=== PATIENT | female | born 1965 | race Caucasian/White ===

== ENCOUNTER 2016-09-17 | Emergency (ER) | payer MEDICAID | END 2016-09-17 12:51 | disposition home or self-care (01) ==

== ENCOUNTER 2016-09-24 10:16 | Outpatient (CLI) | payer MEDICAID | END 2016-09-24 10:17 | disposition home or self-care (01) | DX: E11.9 Type 2 diabetes mellitus without complications (principal) ==

== ENCOUNTER 2016-12-13 12:43 | Outpatient (CLI) | payer MEDICAID | END 2016-12-13 12:44 | disposition home or self-care (01) | DX: M12.9 Arthropathy, unspecified (principal); M79.1 Myalgia; L40.9 Psoriasis, unspecified; F20.9 Schizophrenia, unspecified ==

== ENCOUNTER 2017-02-22 09:44 | Outpatient (CLI) | payer MEDICAID ==
[2017-02-22 13:44] LABS: HEMOGLOBIN A1C 1.59 g/dL
[2017-02-22 14:09] LABS: CHOL/HDL RATIO 5.2 (<4.4); CHOLESTEROL 178 mg/dL; HDL CHOLESTEROL 34 mg/dL; LDL/HDL RATIO 2.5 (<4.4); TRIGLYCERIDES 295 mg/dL; VLDL CHOLESTEROL 59 mg/dL
== END 2017-02-22 09:45 | disposition home or self-care (01) ==
LOC: LAB.N 09:44
PROVIDERS: ATTEND Nurse Practitioner Gerontology
DX: E11.9 Type 2 diabetes mellitus without complications (principal)
CPT/HCPCS: 36415; 80061; 82306; 83036

== ENCOUNTER 2017-05-20 09:47 | Emergency (ER) | payer MEDICAID ==
[2017-05-20 10:18] LABS: BILIRUBIN,URINE NEGATIVE (NEGATIVE); PH,URINE 5.5 PH (5.0-7.5)
[2017-05-20 10:39] LABS: UA CHARGE (STRIP ONLY) YES; UR CULTURE IF IND NOT INDICATED
[2017-05-20] MEDS ORDERED: KETOROLAC 60 MG/2 ML VIAL IM STA (11:33)
--- NOTE | 2017-05-20 11:38 | ED Physician Documentation ---
PD HPI BACK PAIN - Stated complaint Stated Complaint: BACK/LEG PX - Chief complaint Chief Complaint: Back Pain - History obtained from History obtained from: Patient - History of Present Illness Timing - onset: How many days ago (3) Timing - details: Still present Location: Lower, Left Quality: Pain Associated symptoms: No: Fever, Weakness, Numbness, Incontinent of urine Worsened by: Movement, Twisting Similar symptoms before: Diagnosis (Recurrent lower back pain.) - Additional information Additional information: The patient is a 52-year-old female with history of recurrent lower back pain, presents with left lower back pain of 7 days' duration. She denies any recent traumatic injury. The pain is worse with movement or with walking. The last time was this bad was about one year ago. Review of her medical records reveals she was last seen here with back pain about 13 months ago. She denies fever, numbness or weakness, or urinary incontinence. She reports nausea and headache. She denies vomiting or dysuria. Her medical history is significant for insulin dependent diabetes, and she states her blood sugars have been running in the 200s. Review of Systems Constitutional: denies: Fever Ears: denies: Tinnitus/ringing Nose: denies: Congestion Throat: denies: Sore throat Cardiac: denies: Chest pain / pressure Respiratory: denies: Dyspnea, Cough GI: reports: Nausea. denies: Abdominal Pain, Vomiting : denies: Dysuria, Incontinent Skin: denies: Rash Musculoskeletal: reports: Back pain. denies: Neck pain, Extremity swelling Neurologic: reports: Headache. denies: Focal weakness, Numbness PD PAST MEDICAL HISTORY - Past Medical History Past Medical History: Yes Cardiovascular: Hypertension Respiratory: None Neuro: None Endocrine/Autoimmune: Type 2 diabetes GI: GERD, Chronic diarrhea DENTAL OFFICE ASSISTANT: None : None HEENT: None Psych: Depression, Anxiety, Schizophrenia, ADD/ADHD Musculoskeletal: None, Chronic back pain Derm: None - Past Surgical History Past Surgical History: Yes General: Cholecystectomy /DENTAL OFFICE ASSISTANT: Tubal ligation - Present Medications Home Medications: Ambulatory Orders Medication Instructions Recorded Confirmed Cholecalciferol [Vitamin D3] 5,000 unit DAILY 12/20/15 05/20/17 Insulin Glargine [Lantus Solostar] 25 unit SQ QPM 07/22/16 05/20/17 Ranitidine HCl 300 mg PO DAILY 07/22/16 05/20/17 Promethazine [Phenergan] 25 - 50 mg PO Q6H PRN #10 tab 05/20/17 Tramadol HCl [Ultram] 50 mg PO BID PRN #10 tablet 05/20/17 - Allergies Allergies/Adverse Reactions: Allergies Allergy/AdvReac Type Severity Reaction Status Date / Time No Known Drug Allergies Allergy Verified 09/17/16 12:25 - Social History Does the pt smoke?: No Smoking Status: Never smoker Does the pt drink ETOH?: No Does the pt have substance abuse?: No - Immunizations Immunizations are current?: Yes - POLST Patient has POLST: No PD ED PE NORMAL - Vitals Vital signs reviewed: Yes (hypertensive) - General General: Alert and oriented X 3, Well developed/nourished, Other (overweight) - HEENT HEENT: Atraumatic, EOMI, Pharynx benign - Neck Neck: Supple, no meningeal sign, No bony TTP - Cardiac Cardiac: RRR, No murmur - Respiratory Respiratory: No respiratory distress, Clear bilaterally - Abdomen Abdomen: Soft, Non tender - Back Back: No CVA TTP, No spinal TTP, Other (Tenderness to palpation in the left paralumbar musculature, to the sciatic notch. There is no tenderness to palpation over the spinous processes.) - Derm Derm: No rash - Extremities Extremities: No edema, No calf tenderness / cord, Other (Straight leg raise is negative bilaterally.) - Neuro Neuro: Alert and oriented X 3, No motor deficit, No sensory deficit, Other ( Deep tendon reflexes are 2+ and equal bilaterally at the patellar and Achilles tendons.) Results - Vitals Vitals: Oxygen O2 Source Room air - Labs Labs: Laboratory Tests 05/20/17 10:05 Urine Color YELLOW Urine Clarity CLEAR Urine pH 5.5 Ur Specific [place] 1.025 Urine Protein NEGATIVE Urine Glucose (UA) >=1000 H Urine Ketones NEGATIVE Urine Occult Blood TRACE-LYSE Urine Nitrite NEGATIVE Urine Bilirubin NEGATIVE Urine Urobilinogen 0.2 (NORMAL) Ur Leukocyte Esterase NEGATIVE Ur Microscopic Review NOT INDICATED Urine Culture Comments NOT INDICATED PD MEDICAL DECISION MAKING - ED course Complexity details: reviewed old records, reviewed results, re-evaluated patient , considered differential, d/w patient ED course: The patient's presentation is most consistent with acute exacerbation of recurrent low back pain. There is no evidence of neurologic deficit. I doubt epidural abscess, spinal stenosis, or cauda equina syndrome. Treatment in the emergency room included administration of ketorolac 60 mg IM. She is being discharged with prescriptions for Flexeril and for Ultram, 10 tablets. I discussed with her symptomatic treatment, outpatient follow-up, as well as potentially worrisome signs or symptoms that should prompt reevaluation in the emergency department. Departure - Departure Disposition: 01 Home, Self Care Clinical Impression: Back pain Qualifiers: Back pain location: low back pain Chronicity: acute Back pain laterality: left Sciatica presence: without sciatica Qualified Code(s): M54.5 - Low back pain Condition: Stable Instructions: ED Spasm Back No Trauma Follow-Up: Brook Boothe ARNP [Primary Care Provider] - Prescriptions: Promethazine [Phenergan] 25 - 50 mg PO Q6H PRN #10 tab PRN Reason: Nausea / Vomiting Tramadol HCl [Ultram] 50 mg PO BID PRN #10 tablet PRN Reason: Pain Comments: Apply ice pack to your lower back intermittently for the next 3 days. You can use Phenergan as prescribed as needed for nausea. He can use Ultram as prescribed as needed for pain. Follow up with your primary physician within 1-2 weeks. Call to schedule an appointment. Return to the emergency department if you develop increasing back pain or otherwise worsening symptoms. Discharge Date/Time: 05/20/17 11:59
[2017-05-20] MEDS ORDERED: KETOROLAC 60 MG/2 ML VIAL ONE (11:42)
[2017-05-20 12:00] VITALS: BP 142/94
== END 2017-05-20 11:59 | disposition home or self-care (01) ==
LOC: ED 09:47
DX: M54.5 Low back pain (principal); I10 Essential (primary) hypertension; E11.8 Type 2 diabetes mellitus with unspecified complications; Z79.4 Long term (current) use of insulin
CPT/HCPCS: 81001; 81003; 87086; 96372; 99283

== ENCOUNTER 2017-06-16 13:33 | Outpatient (CLI) | payer MEDICAID | END 2017-06-16 13:34 | disposition home or self-care (01) | LOC: RT 13:33 | PROVIDERS: ATTEND Nurse Practitioner Psychiatric/Mental Health | DX: F20.9 Schizophrenia, unspecified (principal) | CPT/HCPCS: 93005 ==

== ENCOUNTER 2017-08-08 14:15 | Outpatient (CLI) | payer MEDICAID ==
[2017-08-08 19:33] LABS: BASOPHILS % (AUTO) 0.5 %; EOSINOPHILS # (AUTO) 0.2 10^3/uL (0.0-0.7); EOSINOPHILS % (AUTO) 2.4 %; HCT - HEMATOCRIT 43.2 % (37.0-47.0); HGB - HEMOGLOBIN 14.5 g/dL (12.0-16.0); LYMPHOCYTES # (AUTO) 2.2 10^3/uL (1.5-3.5); LYMPHOCYTES % (AUTO) 26.3 %; MEAN CORPUSCULAR HEMOGLOBIN 30.2 pg (27.0-31.0); MEAN CORPUSCULAR HGB CONC 33.6 g/dL (32.0-36.0); MEAN PLATELET VOLUME 9.4 fL (7.9-10.8); MONOCYTES # (AUTO) 0.7 10^3/uL (0.0-1.0); MONOCYTES % (AUTO) 8.1 %; NEUTROPHILS # (AUTO) 5.2 10^3/uL (1.5-6.6); NEUTROPHILS % (AUTO) 62.7 %; NUCLEATED RED BLOOD CELLS AUTO 0.1 /100WBC; RED BLOOD COUNT 4.81 10^6/uL (4.20-5.40); RED CELL DISTRIBUTION WIDTH 12.7 % (12.0-15.0); UNCORRECTED WHITE BLOOD COUNT 8.4 x10^3/uL; WHITE BLOOD COUNT 8.4 x10^3/uL (4.8-10.8)
[2017-08-08 19:42] LABS: HEMOGLOBIN A1C 1.51 g/dL
== END 2017-08-08 14:16 ==
LOC: LAB.N 14:15
PROVIDERS: ATTEND Nurse Practitioner Gerontology
DX: E11.9 Type 2 diabetes mellitus without complications (principal)
CPT/HCPCS: 36415; 82043; 83036; 85025

== ENCOUNTER 2017-10-10 08:00 | Outpatient (CLI) | payer MEDICAID ==
[2017-10-10 19:35] LABS: BASOPHILS # (AUTO) 0.1 10^3/uL (0.0-0.1); EOSINOPHILS # (AUTO) 0.1 10^3/uL (0.0-0.7); EOSINOPHILS % (AUTO) 1.8 %; HGB - HEMOGLOBIN 14.6 g/dL (12.0-16.0); LYMPHOCYTES # (AUTO) 2.1 10^3/uL (1.5-3.5); LYMPHOCYTES % (AUTO) 27.2 %; MEAN CORPUSCULAR HEMOGLOBIN 29.9 pg (27.0-31.0); MEAN CORPUSCULAR HGB CONC 32.5 g/dL (32.0-36.0); MEAN PLATELET VOLUME 9.9 fL (7.9-10.8); MONOCYTES # (AUTO) 0.7 10^3/uL (0.0-1.0); MONOCYTES % (AUTO) 9.6 %; NEUTROPHILS # (AUTO) 4.6 10^3/uL (1.5-6.6); NEUTROPHILS % (AUTO) 60.4 %; PLT - PLATELET COUNT 275 10^3/uL (130-450); RED BLOOD COUNT 4.87 10^6/uL (4.20-5.40); WHITE BLOOD COUNT 7.7 x10^3/uL (4.8-10.8)
[2017-10-10 19:48] LABS: ALBUMIN 3.9 g/dL (3.2-5.5); ALBUMIN/GLOBULIN RATIO 1.3 (1.0-2.2); BILIRUBIN,TOTAL 0.5 mg/dL (0.2-1.0); CALCIUM 8.9 mg/dL (8.5-10.3); CREATININE 0.8 mg/dL (0.4-1.0); TOTAL PROTEIN 6.9 g/dL (6.7-8.2)
== END 2017-10-10 08:01 | disposition home or self-care (01) ==
LOC: LAB.N 08:00
PROVIDERS: ATTEND Dermatology
DX: Z79.899 Other long term (current) drug therapy (principal)
CPT/HCPCS: 36415; 80053; 85025

== ENCOUNTER 2018-01-23 08:00 | Outpatient (CLI) | payer MEDICAID ==
[2018-01-23 13:28] LABS: HB2 TOTAL 16.6 g/dL; HEMOGLOBIN A1C 1.7 g/dL; HEMOGLOBIN A1C % 11.5 % (4.6-6.2)
[2018-01-23 13:29] LABS: CHOLESTEROL 195 mg/dL; GLUCOSE 318 mg/dL (70-100); HDL CHOLESTEROL 28 mg/dL; LDL CHOLESTEROL,CALCULATED 99 mg/dL; LDL/HDL RATIO 3.5 (<4.4); VLDL CHOLESTEROL 68 mg/dL
== END 2018-01-23 08:01 | disposition home or self-care (01) ==
LOC: LAB.N 08:00
PROVIDERS: ATTEND Physician Assistant Medical
DX: E11.9 Type 2 diabetes mellitus without complications (principal); F20.9 Schizophrenia, unspecified
CPT/HCPCS: 36415; 80061; 82947; 83036; 83721

== ENCOUNTER 2018-06-05 11:55 | Outpatient (CLI) | payer MEDICAID ==
[2018-06-05 19:18] LABS: HB2 TOTAL 17.4 g/dL; HEMOGLOBIN A1C 1.69 g/dL
== END 2018-06-05 11:56 | disposition home or self-care (01) ==
LOC: LAB.N 11:55
PROVIDERS: ATTEND Nurse Practitioner Gerontology
DX: E11.9 Type 2 diabetes mellitus without complications (principal)
CPT/HCPCS: 36415; 83036

== ENCOUNTER 2018-09-06 11:38 | Outpatient (CLI) | payer MEDICAID ==
[2018-09-06 18:59] LABS: CALCIUM 8.8 mg/dL (8.5-10.3); CREATININE 0.6 mg/dL (0.4-1.0)
[2018-09-06 19:08] LABS: HB2 TOTAL 17.4 g/dL; HEMOGLOBIN A1C 1.76 g/dL; HEMOGLOBIN A1C % 11.4 % (4.6-6.2)
== END 2018-09-06 23:59 | disposition home or self-care (01) ==
LOC: LAB.N 11:38
PROVIDERS: ATTEND Nurse Practitioner Gerontology
DX: E11.9 Type 2 diabetes mellitus without complications (principal)
CPT/HCPCS: 36415; 80048; 83036

== ENCOUNTER 2018-09-23 10:30 | Emergency (ER) | payer MEDICAID ==
[2018-09-23] MEDS ORDERED: BUFFERED LIDOCAINE 10 ML SYRINGE SUBQ STA (12:19)
--- NOTE | 2018-09-23 12:20 | ED Physician Documentation ---
PD HPI SKIN - Stated complaint Stated Complaint: LUMP ON SIDE OF BREAST - Chief complaint Chief Complaint: Wound - History obtained from History obtained from: Patient - History of Present Illness Timing - onset: Other (She has a one-week history of a painful lesion on the medial right breast without fevers or chills. She was on an antibiotic for this which did not resolve it. She does not know which one. Became more red and angry today.) Review of Systems Constitutional: reports: Sweats. denies: Fever, Chills Nose: reports: Reviewed and negative Cardiac: reports: Reviewed and negative Respiratory: reports: Reviewed and negative PD PAST MEDICAL HISTORY - Past Medical History Cardiovascular: Hypertension Respiratory: None Endocrine/Autoimmune: Type 2 diabetes GI: GERD, Chronic diarrhea DIRECTOR TOXICOLOGY: None : None HEENT: None Psych: Depression, Anxiety, Schizophrenia, ADD/ADHD Musculoskeletal: None, Chronic back pain Derm: None - Past Surgical History Past Surgical History: Yes General: Cholecystectomy /DIRECTOR TOXICOLOGY: Tubal ligation - Present Medications Home Medications: Ambulatory Orders Medication Instructions Recorded Confirmed Cholecalciferol [Vitamin D3] 5,000 unit DAILY 12/20/15 05/20/17 Insulin Glargine [Lantus Solostar] 25 unit SQ QPM 07/22/16 05/20/17 raNITIdine HCl [Ranitidine HCl] 300 mg PO DAILY 07/22/16 05/20/17 Promethazine [Phenergan] 25 - 50 mg PO Q6H PRN #10 tab 05/20/17 Tramadol HCl [Ultram] 50 mg PO BID PRN #10 tablet 05/20/17 Sulfamethoxazole/Trimethoprim 1 each PO BID #14 tablet 09/23/18 [Sulfamethoxazole-Tmp Ds Tablet] - Allergies Allergies/Adverse Reactions: Allergies Allergy/AdvReac Type Severity Reaction Status Date / Time No Known Drug Allergies Allergy Verified 09/17/16 12:25 - Social History Does the pt smoke?: No Smoking Status: Never smoker Does the pt drink ETOH?: No Does the pt have substance abuse?: No - Immunizations Immunizations are current?: Yes - POLST Patient has POLST: No PD ED PE NORMAL - Vitals Vital signs reviewed: Yes - General General: Alert and oriented X 3, No acute distress - Derm Derm: Other (All breast exams done with the nurse at the bedside. On the superomedial right breast there is a pointed 2 cm abscess with surrounding cellulitis.) - Neuro Neuro: Alert and oriented X 3, Normal speech Results - Vitals Vitals: Vital Signs - 24 hr 09/23/18 10:54 Temperature 36.8 C Heart Rate 87 Respiratory 18 Rate Blood Pressure 146/97 H O2 Saturation 95 Oxygen O2 Source Room air Procedures - Abscess I&D (location) R breast Preparation: Betadine, Lidocaine 1% Incision: Incised with scalpel, Purulent drainage, Loculations broken, Culture obtained. No: Irrigated, Packed Other: Pt tolerated well, Dressing applied, Antibiotic prescribed Departure - Departure Disposition: Home, Self Care Clinical Impression: Abscess Condition: Good Record reviewed to determine appropriate education?: Yes Instructions: ED Abscess IandD Prescriptions: Sulfamethoxazole/Trimethoprim [Sulfamethoxazole-Tmp Ds Tablet] 1 each PO BID #14 tablet Comments: We are performing a wound culture, the results should be done in 48-72 hours. If antibiotic change is necessary we will call you. Return if worse in the meantime, especially if you develop increased pain, fevers, cannot keep down the medication. Otherwise follow-up with your physician in approximately 2-3 days. Your blood pressure was elevated today on check into the emergency department. This does not mean that you have hypertension, it is a common phenomenon to come to the emergency department and have elevated blood pressure. I recommend that you see your primary care physician within the week to have it rechecked when you are feeling better.
[2018-09-23 12:47] VITALS: BP 132/93
== END 2018-09-23 12:51 | disposition home or self-care (01) ==
LOC: ED 10:30
DX: N61.1 Abscess of the breast and nipple (principal); I10 Essential (primary) hypertension; E11.9 Type 2 diabetes mellitus without complications; Z79.4 Long term (current) use of insulin
CPT/HCPCS: 10060; 87070; 87077; 87181; 87205; 99283

== ENCOUNTER 2018-11-19 11:51 | Outpatient (CLI) | payer MEDICAID ==
--- NOTE | 2018-12-01 11:05 | Mammography Report ---
Reason: SCREENING EXAM FOR BREAST CANCER Procedure Date: 11/19/2018 Accession Number: [id number] / [id number] Procedure: JESSICA - Screening Mammo w/Ned CPT Code: FULL RESULT: EXAM: Screening Mammo w/Ned DATE: 11/19/2018 12:54 PM CLINICAL HISTORY: Routine screening. No reported personal or family history of breast cancer. TECHNIQUE: Bilateral CC and MLO views were obtained. COMPARISON: 05/02/2015 through 04/23/2015 FINDINGS: The breasts demonstrate scattered fibroglandular densities bilaterally. Bilateral breasts: There are no suspicious masses, calcifications or areas of distortion. IMPRESSION: Negative examination RECOMMENDATION: Routine annual screening unless otherwise clinically indicated. BI-RADS CATEGORY 1: Negative STANDARD QUALIFYING STATEMENTS: 1. This examination was not reviewed with the aid of Computer-Aided Detection (CAD). 2. A negative or benign imaging report should not preclude biopsy if clinically suspicious findings are present. 3. Dense breasts may obscure an underlying neoplasm. 4. This examination was reviewed with the aid of 3D breast imaging (tomosynthesis).
== END 2018-11-19 11:52 | disposition home or self-care (01) ==
LOC: DI 11:51
PROVIDERS: ATTEND Nurse Practitioner Gerontology
DX: Z12.39 Encounter for other screening for malignant neoplasm of breast (principal)
CPT/HCPCS: 77063; 77067

== ENCOUNTER 2019-01-29 08:00 | Outpatient (CLI) | payer MEDICAID ==
[2019-01-29 20:14] LABS: HB2 TOTAL 16.5 g/dL; HEMOGLOBIN A1C 1.44 g/dL; HEMOGLOBIN A1C % 10.1 % (4.6-6.2)
== END 2019-01-29 23:59 | disposition home or self-care (01) ==
LOC: LAB.N 08:00
PROVIDERS: ATTEND Nurse Practitioner Gerontology
DX: E11.9 Type 2 diabetes mellitus without complications (principal)
CPT/HCPCS: 36415; 83036

== ENCOUNTER 2019-06-15 18:55 | Emergency (ER) | payer MEDICAID ==
[2019-06-15 19:02] VITALS: BP 138/83
--- NOTE | 2019-06-15 19:50 | ED Physician Documentation ---
PD HPI SKIN - Stated complaint Stated Complaint: NECK/BACK LUMPS - Chief complaint Chief Complaint: Wound - History obtained from History obtained from: Patient - History of Present Illness Timing - onset: Other (This is a 54-year-old poorly controlled type II diabetic who has had sebaceous cyst in the past. She saw her doctor on Tuesday who examined it and since then its become more inflamed, and the cyst is on the back of her neck. No fevers or chills.) Review of Systems Constitutional: denies: Fever, Chills GI: reports: Reviewed and negative : reports: Reviewed and negative PD PAST MEDICAL HISTORY - Past Medical History Past Medical History: Yes Cardiovascular: Hypertension Respiratory: None Endocrine/Autoimmune: Type 2 diabetes GI: GERD, Chronic diarrhea ENGINEERING TECHNOLOGY INSTRUCTOR: None : None HEENT: None Psych: Depression, Anxiety, Schizophrenia, ADD/ADHD Musculoskeletal: None, Chronic back pain Derm: None - Past Surgical History Past Surgical History: Yes General: Cholecystectomy /ENGINEERING TECHNOLOGY INSTRUCTOR: Tubal ligation - Present Medications Home Medications: Ambulatory Orders Medication Instructions Recorded Confirmed Insulin Glargine [Lantus Solostar] 25 unit SQ QPM 07/22/16 05/20/17 Cephalexin [Keflex] 500 mg PO Q6H #28 capsule 06/15/19 Insulin Aspart [NovoLOG] 10 unit SQ TID 06/15/19 06/15/19 - Allergies Allergies/Adverse Reactions: Allergies Allergy/AdvReac Type Severity Reaction Status Date / Time No Known Drug Allergies Allergy Verified 06/15/19 18:59 - Social History Does the pt smoke?: No Smoking Status: Never smoker Does the pt drink ETOH?: No Does the pt have substance abuse?: No - Immunizations Immunizations are current?: Yes - POLST Patient has POLST: No PD ED PE NORMAL - Vitals Vital signs reviewed: Yes - General General: Alert and oriented X 3, No acute distress - HEENT HEENT: Other (There is an infected sebaceous cyst with at most minimal surroun ding cellulitis on the left side of the low neck posteriorly.) - Neck Neck: Supple, no meningeal sign - Neuro Neuro: Alert and oriented X 3, Normal speech - Psych Psych: Normal mood, Normal affect Results - Vitals Vitals: Vital Signs - 24 hr 06/15/19 18:59 Temperature 36.8 C Heart Rate 90 Respiratory 16 Rate Blood Pressure 138/83 H O2 Saturation 96 Oxygen O2 Source Room air Procedures - Abscess I&D (location) neck Preparation: Alcohol, Lidocaine 1%, With epi Incision: Incised with scalpel, Purulent drainage, Loculations broken, Culture obtained. No: Packed (too small) Other: Pt tolerated well, Antibiotic prescribed Departure - Departure Disposition: Home, Self Care Clinical Impression: Infected sebaceous cyst Condition: Good Record reviewed to determine appropriate education?: Yes Instructions: ED Abscess IandD Prescriptions: Cephalexin [Keflex] 500 mg PO Q6H #28 capsule Comments: Oftentimes after incision and drainage these do not resolve completely, follow- up with your doctor for surgical referral if a lump remains there. Continue your efforts to control your diabetes better. Return for new worsening symptoms. We are performing a wound culture, the results should be done in 48-72 hours. If antibiotic change is necessary we will call you. Return if worse in the meantime, especially if you develop increased pain, fevers, cannot keep down the medication. Otherwise follow-up with your physician in approximately 2-3 days.
[2019-06-15] MEDS ORDERED: CEPHALEXIN 250 MG Prepack 8 CAP BOTTLE PO STA (19:56)
== END 2019-06-15 20:10 | disposition home or self-care (01) ==
LOC: ED 18:55
DX: L72.3 Sebaceous cyst (principal); L03.221 Cellulitis of neck; I10 Essential (primary) hypertension; E11.9 Type 2 diabetes mellitus without complications; Z79.4 Long term (current) use of insulin
CPT/HCPCS: 10060; 87070; 87077; 87205

== ENCOUNTER 2019-07-03 10:58 | Outpatient (CLI) | payer MEDICAID ==
[2019-07-03 18:55] LABS: HGB - HEMOGLOBIN 15.4 g/dL (12.0-16.0); MEAN CORPUSCULAR HEMOGLOBIN 28.3 pg (27.0-31.0); MEAN CORPUSCULAR HGB CONC 31.6 g/dL (32.0-36.0); MEAN CORPUSCULAR VOLUME 89.7 fL (81.0-99.0); MEAN PLATELET VOLUME 10.2 fL (7.9-10.8); RED BLOOD COUNT 5.44 10^6/uL (4.20-5.40); RED CELL DISTRIBUTION WIDTH 13.2 % (12.0-15.0); WHITE BLOOD COUNT 7.4 x10^3/uL (4.8-10.8)
[2019-07-03 19:40] LABS: HB2 TOTAL 16.4 g/dL; HEMOGLOBIN A1C 1.56 g/dL; HEMOGLOBIN A1C % 10.9 % (4.6-6.2)
[2019-07-03 19:55] LABS: CALCIUM 8.7 mg/dL (8.5-10.3); CREATININE 0.7 mg/dL (0.4-1.0)
== END 2019-07-03 23:59 ==
LOC: LAB.N 10:58
PROVIDERS: ATTEND Family Medicine
DX: E11.9 Type 2 diabetes mellitus without complications (principal)
CPT/HCPCS: 36415; 80048; 83036; 85027

== ENCOUNTER 2019-10-30 14:08 | Outpatient (CLI) | payer MEDICAID ==
[2019-10-30 18:32] LABS: BASOPHILS # (AUTO) 0.1 10^3/uL (0.0-0.1); BASOPHILS % (AUTO) 0.6 %; EOSINOPHILS # (AUTO) 0.1 10^3/uL (0.0-0.7); EOSINOPHILS % (AUTO) 1.8 %; HGB - HEMOGLOBIN 15.6 g/dL (12.0-16.0); LYMPHOCYTES # (AUTO) 2.3 10^3/uL (1.5-3.5); LYMPHOCYTES % (AUTO) 29.9 %; MEAN CORPUSCULAR HEMOGLOBIN 28.2 pg (27.0-31.0); MEAN CORPUSCULAR HGB CONC 32.6 g/dL (32.0-36.0); MEAN CORPUSCULAR VOLUME 86.4 fL (81.0-99.0); MEAN PLATELET VOLUME 10.8 fL (7.9-10.8); MONOCYTES # (AUTO) 0.6 10^3/uL (0.0-1.0); MONOCYTES % (AUTO) 7.7 %; NEUTROPHILS # (AUTO) 4.6 10^3/uL (1.5-6.6); NEUTROPHILS % (AUTO) 59.4 %; PLT - PLATELET COUNT 316 10^3/uL (130-450); RED BLOOD COUNT 5.53 10^6/uL (4.20-5.40); RED CELL DISTRIBUTION WIDTH 12.5 % (12.0-15.0); WHITE BLOOD COUNT 7.8 x10^3/uL (4.8-10.8)
[2019-10-30 19:18] LABS: ALBUMIN 3.9 g/dL (3.2-5.5); ALBUMIN/GLOBULIN RATIO 1.2 (1.0-2.2); ALKALINE PHOSPHATASE 120 IU/L (42-121); ALT ALANINE AMINOTRANSFERASE 26 IU/L (10-60); AST ASPARTATE AMINOTRANSFERASE 18 IU/L (10-42); BILIRUBIN,TOTAL 0.8 mg/dL (0.2-1.0); BUN - BLOOD UREA NITROGEN 11 mg/dL (6-20); CALCIUM 8.9 mg/dL (8.5-10.3); CARBON DIOXIDE - CO2 25 mmol/L (21-32); CHLORIDE 102 mmol/L (101-111); CHOL/HDL RATIO 5.5 (<4.4); CHOLESTEROL 198 mg/dL; CREATININE 0.7 mg/dL (0.4-1.0); GFR - MDRD 88 (>89); GLUCOSE 311 mg/dL (70-100); HDL CHOLESTEROL 36 mg/dL; LDL CHOLESTEROL,CALCULATED 107 mg/dL; SODIUM 135 mmol/L (135-145); TOTAL PROTEIN 7.2 g/dL (6.7-8.2); VLDL CHOLESTEROL 55 mg/dL
== END 2019-10-30 23:59 | disposition home or self-care (01) ==
LOC: LAB.N 14:08
PROVIDERS: ATTEND Nurse Practitioner Gerontology
DX: E78.5 Hyperlipidemia, unspecified (principal); I10 Essential (primary) hypertension; E11.9 Type 2 diabetes mellitus without complications
CPT/HCPCS: 36415; 80053; 80061; 83721; 84443; 85025

== ENCOUNTER 2019-11-06 12:04 | Outpatient (CLI) | payer MEDICAID ==
[2019-11-06 19:04] LABS: HB2 TOTAL 16.9 g/dL; HEMOGLOBIN A1C 1.63 g/dL
== END 2019-11-06 23:59 | disposition home or self-care (01) ==
LOC: LAB.N 12:04
PROVIDERS: ATTEND Nurse Practitioner Gerontology
DX: E11.9 Type 2 diabetes mellitus without complications (principal)
CPT/HCPCS: 36415; 83036

== ENCOUNTER 2020-01-28 08:00 | Outpatient (CLI) | payer MEDICAID ==
[2020-01-28 14:51] LABS: CALCIUM 9.1 mg/dL (8.5-10.3); CREATININE 0.7 mg/dL (0.4-1.0)
[2020-01-28 15:08] LABS: HB2 TOTAL 16.2 g/dL; HEMOGLOBIN A1C 1.5 g/dL; HEMOGLOBIN A1C % 10.6 % (4.6-6.2)
== END 2020-01-28 23:59 | disposition home or self-care (01) ==
LOC: LAB.WCP 08:00
PROVIDERS: ATTEND Family Medicine
DX: E11.9 Type 2 diabetes mellitus without complications (principal)
CPT/HCPCS: 36415; 80048; 83036

== ENCOUNTER 2020-05-06 10:22 | Outpatient (CLI) | payer MEDICAID ==
--- NOTE | 2020-05-06 11:07 | SLEEP CARE CONSULTATION ---
Information from patient questionnaire entered by Carina Mahoney. I have reviewed and concur with the information entered by Carina Mahoney. This document represents the service I personally performed and the decisions made by me, Debbi Castillo MD, [facility]. History of Present Illness Service Date and Time: 05/06/2020 1022 Reason for Visit: New patient Chief Complaint: reports: Excessive daytime sleepiness, Other (Sleeping too much) Usual bedtime: 2300 Time it takes to fall asleep: 1-2 hours Snores at night: No (per ) Observed to quit breathing while asleep: No Sleeps alone due to snoring: No Number of times waking at night: 2-3 Reasons for waking at night: reports: Choking (sometimes), Bathroom Toss, Turn, or Twitch while sleeping: Yes Recalls having dreams: No Usually gets out of bed at: 7501-1189 Feels refreshed in the morning: No Morning headache: Yes Sleepy or fatigued during the day: Yes Ever fallen asleep while driving: No Takes day naps: Yes Dreams during day naps: Yes Prior sleep studies: No Additional HPI information: I had the pleasure of seeing Ms. Leblanc today regarding the possibility of her having a sleep disorder. As you know, she is a 55 year old lady who complains of sleeping too much and persistent fatigue for 10 years. She reports getting 10 12 hours of sleep at night and 2 hours of nap during the day. She was on sertraline and doxipin, but is now taking brxpiprazole (Resulti). The patient tells me that she normally goes to bed around 11 pm, and it takes her approximately 1 2 hours to fall asleep. She snores loudly according to her grandchildren but not her . She has never been observed to stop breathing in her sleep. Her spouse can still sleep in the same bed. She can recall waking up on the average of 2 - 3 times during the night. She has awakened occasionally because of her own snoring, choking, and having to gasp for air. There is a lot of tossing and turning in her sleep. No somniloquy (sleep talking) or somnambulism (sleep walking). Generally there is no recollection of dreams. In the morning she usually gets up out of the bed around 9 - 10 a.m. not feeling refreshed nor rested. She usually does have a morning headache. During the day she complains of feeling sleepy and fatigued. Her score on Zeeland Sleepiness Scale is 11 out of 24. She has fallen asleep while driving and has gone out of the erica. She usually takes naps during the day. Upon falling asleep during the day she denies having vivid dreams. She had one sleep paralysis. She reports being bothered by restless leg sensation. She reports having impaired concentration during the day. 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 Patient is Single and lives in [place]. Have you smoked in the past 12 months: No Alcohol use: No Caffeine use: Yes Caffeine amount and frequency: 1-2 52oz/day Family History Family history of sleep disordered breathing: No Allergies and Home Medications Drug allergies reviewed: Yes Home medication list reviewed: Yes Review of Systems Cardiovascular: reports: high blood pressure Respiratory: reports: shortness of breath Gastrointestinal: reports: heartburn, diarrhea Urinary: reports: frequency ("peeing all the time") Neurological: denies: headaches, seizure, head trauma, disorientation, speech dysfunction, gait or balance problems, fainting or unconsciousness, other Psychiatric: reports: anxiety, depression, mood disorder, other (schizophrenia) Ear/Nose/Throat: reports: sinus problems, dry mouth/throat, hoarseness Endocrine: reports: too hot or cold, excessive thirst Musculoskeletal: reports: joint pain, back pain, joint swelling Immunologic: reports: sneezing Physical Exam Vital signs obtained and entered by: To minimize the risk of COVID-19 exposure, detailed exam was not performed. Height: 5 ft 4 in Weight: 280 lb Body Mass Index: 48.0 BMI Classification: Morbidly Obese Impression and Plan IMPRESSION: 1. Hypersomnia, despite getting adequate sleep at night. Sleep disrupting conditions will have to be ruled out. Obstructive sleep apnea-hypopnea is a possibility given loud snore, nocturnal choking, morning headache, and morbid obesity. She is also taking medicationsdoxepin, sertraline, and brexpiprazolethat have daytime sleepiness as a side effect. Pathophysiology of sleep-disordered breathing was discussed. I recommend proceeding to the in- laboratory polysomnography for further evaluation. Multiple sleep latency test (MSLT) will not be ordered because she is on medications that can cause sleepiness and interfere with REM sleep. If she has significant sleep disordered breathing, a manual CPAP titration study will also be performed to find the optimal treatment pressure. I informed the patient of what the sleep studies involve and after some discussion, she agreed to proceed. Plan: 1. Schedule an in-laboratory polysomnography + manual CPAP titration study. 2. Avoid long distance driving or when feeling sleepy. 3. Avoid alcohol, sedative and muscle relaxant around bedtime. 4. Attempt to lose weight. 5. Return in 1 to 2 weeks after the study to discuss results and initiate therapy. Visit Type: In Office Time Spent with Patient (minutes): 15 Provider Statement: I spent 100% of the Face to Face Visit with the patient with greater than 50% spent counseling the patient and coordination of care.
== END 2020-05-06 10:23 | disposition home or self-care (01) ==
LOC: SC 10:22
PROVIDERS: ATTEND Internal Medicine Pulmonary Disease
DX: G47.10 Hypersomnia, unspecified (principal); R06.83 Snoring; R53.83 Other fatigue; G47.8 Other sleep disorders; E66.01 Morbid (severe) obesity due to excess calories; Z68.42 Body mass index [BMI] 45.0-49.9, adult; F32.9 Major depressive disorder, single episode, unspecified; E11.9 Type 2 diabetes mellitus without complications
CPT/HCPCS: 99203; 99212

== ENCOUNTER 2020-06-05 06:51 | Day surgery (SDC) | payer MEDICAID ==
[2020-06-05] MEDS ORDERED: LACTATED RINGERS 1,000 ML IV ONE ×2 (07:24→09:53)
--- NOTE | 2020-06-05 08:27 | ANESTHESIA ---
Pre-Anesthesia VS, & Labs - Diagnosis Screening and GERD - Procedure Colonoscopy and EGD Vital Signs: Temp Pulse Resp BP Pulse Ox 36.3 C L 98 16 153/104 H 94 06/05/20 07:07 06/05/20 07:07 06/05/20 07:07 06/05/20 07:07 06/05/20 07:07 Height: 5 ft 4 in Weight (kg): 109.1 kg Body Mass Index: 41.3 BMI Classification: Morbidly Obese - NPO >8 hours - Is Patient ?: No - Lab Results Current Lab Results: Laboratory Tests 06/05/20 07:16: POC Whole Bld Glucose 266 H Home Medications and Allergies Home Medications: Ambulatory Orders Atorvastatin [Lipitor] 10 mg PO QPM 06/04/20 Brexpiprazole [Rexulti] 4 mg PO DAILY 06/04/20 Doxepin HCl 10 mg PO QPM 06/04/20 Exenatide Microspheres [Bydureon Pen] 2 mg SQ OAW 06/04/20 Gabapentin 300 mg PO BID 06/04/20 Insulin Detemir [Levemir Flextouch] 21 unit SUBQ DAILY 06/04/20 Metformin HCl 1,000 mg PO BID 06/04/20 cloNIDine [Catapres] 0.1 mg PO ONCE 06/04/20 lisinopriL [Lisinopril] 20 mg PO DAILY 06/04/20 metHOTREXate sodium [Methotrexate] 15 mg PO OAW 06/04/20 Insulin Detemir [Levemir Flextouch] 30 unit SUBQ BID 06/05/20 Atorvastatin [Lipitor] 10 mg PO QPM 06/04/20 Brexpiprazole [Rexulti] 4 mg PO DAILY 06/04/20 Doxepin HCl 10 mg PO QPM 06/04/20 Exenatide Microspheres [Bydureon Pen] 2 mg SQ OAW 06/04/20 Gabapentin 300 mg PO BID 06/04/20 Insulin Detemir [Levemir Flextouch] 21 unit SUBQ DAILY 06/04/20 Metformin HCl 1,000 mg PO BID 06/04/20 cloNIDine [Catapres] 0.1 mg PO ONCE 06/04/20 lisinopriL [Lisinopril] 20 mg PO DAILY 06/04/20 metHOTREXate sodium [Methotrexate] 15 mg PO OAW 06/04/20 Insulin Detemir [Levemir Flextouch] 30 unit SUBQ BID 06/05/20 Allergies/Adverse Reactions: Allergies Allergy/AdvReac Type Severity Reaction Status Date / Time risperidone [From Risperdal] AdvReac Unknown Verified 06/05/20 08:03 Anes History & Medical History - Anesthetic History Anesthesia Complications: reports: No previous complications - Medical History Cardiovascular: reports: Hypertension Pulmonary: reports: Other (Planned sleep study next week) Gastrointestinal: reports: GERD, Chronic diarrhea Urinary: reports: None Neuro: reports: None Musculoskeletal: reports: Chronic back pain, Other Endocrine/Autoimmune: reports: Type 2 diabetes Blood Disorders: reports: None Skin: reports: Psoriasis Smoking Status: Never smoker Psychosocial: reports: Other (Schizophrenia) - Surgical History General: Cholecystectomy Gynecologic: Tubal ligation Orthopedic: Other Exam General: Alert, Oriented x3, Cooperative, No acute distress Dental: WNL Mouth Openin Fingerbreadth Neck Mobility: Normal Mallampati classification: I Thyromental Distance: 4-6 cm Mental/Cognitive Status: Alert/Oriented X3, Normal for patient Plan Anesthesia Type: MAC Consent for Procedure(s) Verified and Reviewed: Yes Code Status: Attempt Resuscitation ASA classification: 3-Severe systemic disease Is this case an emergency?: No
[2020-06-05] MEDS ORDERED: LIDOCAINE-MPF 2% 5 ML VIAL IM ONE (09:04)
[2020-06-05] MEDS ORDERED: KETAMINE 500 MG/10 ML VIAL IVP ONE (09:04)
[2020-06-05] MEDS ORDERED: MIDAZOLAM 2 MG/2 ML VIAL IVP ONE (09:04)
[2020-06-05] MEDS ORDERED: METOCLOPRAMIDE 10 MG/2 ML VIAL IVP ONE (09:04)
[2020-06-05] MEDS ORDERED: PROPOFOL 200 MG/20 ML VIAL IVP ONE (09:04)
[2020-06-05] MEDS ORDERED: LIDO GARGLE 30 ML BOTTLE ONE (09:04)
[2020-06-05] MEDS ORDERED: SIMETHICONE 40 MG/0.6 ML 30 ML BOTTLE PO ONE (09:34)
[2020-06-05 10:20] VITALS: BP 134/88
--- NOTE | 2020-06-05 13:28 | ANESTHESIA POST OP EVALUATION ---
Anesthesia Post Eval - Post Anesthesia Eval Vitals: Last Vital Signs Temp 36.8 C 06/05/20 10:19 Pulse 87 06/05/20 10:19 Resp 14 06/05/20 10:19 BP 134/88 H 06/05/20 10:19 Pulse Ox 97 06/05/20 10:19 CV Function Including HR & BP: positive: Stable Pain Control: positive: Satisfactory Nausea & Vomiting: positive: Negative Mental Status: positive: Patient Participates Respiratory Status: Airway Patent Hydration Status: Satisfactory Anesthesia Complications: positive: None
== END 2020-06-05 06:52 | disposition home or self-care (01) ==
LOC: SDS 06:51
PROVIDERS: ATTEND Surgery
PROC: 0DB48ZX Excision of Esophagogastric Junction, Via Natural or Artificial Opening Endoscopic, Diagnostic (ICD-10-PCS; 2020-06-05)
PROC: 0DJD8ZZ Inspection of Lower Intestinal Tract, Via Natural or Artificial Opening Endoscopic (ICD-10-PCS; 2020-06-05)
PROC: 0DB98ZX Excision of Duodenum, Via Natural or Artificial Opening Endoscopic, Diagnostic (ICD-10-PCS; principal; 2020-06-05 08:15)
PROC: 0DB68ZX Excision of Stomach, Via Natural or Artificial Opening Endoscopic, Diagnostic (ICD-10-PCS; 2020-06-05 08:15)
DX: Z12.11 Encounter for screening for malignant neoplasm of colon (principal); K21.9 Gastro-esophageal reflux disease without esophagitis; Z87.828 Personal history of other (healed) physical injury and trauma; I10 Essential (primary) hypertension; K29.50 Unspecified chronic gastritis without bleeding; E66.01 Morbid (severe) obesity due to excess calories; Z68.41 Body mass index [BMI] 40.0-44.9, adult; K52.9 Noninfective gastroenteritis and colitis, unspecified; E11.9 Type 2 diabetes mellitus without complications
CPT/HCPCS: 43239; 45378; 88305; A9270; J2765; J7120

== ENCOUNTER 2020-06-10 19:26 | Outpatient (CLI) | payer MEDICAID | END 2020-06-10 19:27 | disposition home or self-care (01) | LOC: SC 19:26 | PROVIDERS: ATTEND Internal Medicine Pulmonary Disease | DX: G47.33 Obstructive sleep apnea (adult) (pediatric) (principal); G47.61 Periodic limb movement disorder; E66.9 Obesity, unspecified; Z68.42 Body mass index [BMI] 45.0-49.9, adult | CPT/HCPCS: 95810 ==

== ENCOUNTER 2020-06-17 09:53 | Outpatient (CLI) | payer MEDICAID ==
--- NOTE | 2020-06-17 10:30 | SLEEP CARE CONSULTATION ---
Information from patient questionnaire entered by Jaylene Fernandez. I have reviewed and concur with the information entered by Jaylene Fernandez. This document represents the service I personally performed and the decisions made by me, Debbi Castillo MD, [facility]. History of Present Illness Service Date and Time: 06/17/2020 0953 Initial [place] Sleepiness Scale score: 11 (in 2019) Additional HPI information: HPI: Ms. Leblanc returns for follow up of the sleep study she had on 06/10/2020. The polysomnography showed that the patient had normal sleep efficiency. The sleep architecture was abnormal for sleep fragmentation and reduced amount of time spent in REM sleep. Respiratory monitoring showed moderate obstructive sleep apnea-hypopnea (AHI = 19.5) associated with frequent arousals, oxyhemoglobin desaturation and mild hypoxia (munira oxygen saturation of 83%). The respiratory events occurred more frequently during supine sleep (supine AHI = 25.2; non-supine = 15.37). Snore was light in intensity. There was mild periodic leg movement of sleep not contributing to the sleep fragmentation. Cardiac rhythm was normal sinus rhythm without significant arrhythmia. No abnormal behavior (parasomnia) observed during the night. The patient was informed of these findings. I explained to her the pathophysiology behind obstructive sleep apnea. We then spent quite a bit of time discussing different treatment options. For mild obstructive sleep apnea, surgery and oral appliance are alternatives to nasal CPAP therapy but in moderate or severe cases, nasal CPAP is the most effective and reliable tr eatment. After some discussion, she opted to go with the nasal CPAP therapy. I explained to her how CPAP machine works and what to expect when using the machine. Sleep Study - Results Type of Sleep Study: Polysomnography Allergies and Home Medications Drug allergies reviewed: Yes Home medication list reviewed: Yes Review of Systems Review of systems same as previous: Yes Physical Exam Height: 5 ft 4 in Weight: 280 lb Body Mass Index: 48.0 BMI Classification: Morbidly Obese Impression and Plan IMPRESSION: 1. Obstructive Sleep Apnea-Hypopnea Syndrome, moderate, associated with mild hypoxemia and sleep fragmentation. Most likely, this is the cause of the patients symptoms of unrefreshed sleep, and excessive daytime sleepiness. As mentioned above, the patient will be scheduled to return for a manual CPAP/BiPAP titration study. PLAN: 1. Schedule a manual CPAP/BiPAP titration study. 2. Attempt to lose weight. 3. Return for follow up after the titration study. Visit Type: In Office Time Spent with Patient (minutes): 15 Provider Statement: I spent 100% of the Face to Face Visit with the patient with greater than 50% spent counseling the patient and coordination of care.
== END 2020-06-17 09:54 | disposition home or self-care (01) ==
LOC: SC 09:53
PROVIDERS: ATTEND Internal Medicine Pulmonary Disease
DX: G47.33 Obstructive sleep apnea (adult) (pediatric) (principal); E66.01 Morbid (severe) obesity due to excess calories; Z68.42 Body mass index [BMI] 45.0-49.9, adult
CPT/HCPCS: 99212; 99213

== ENCOUNTER 2020-07-22 19:24 | Outpatient (CLI) | payer MEDICAID | END 2020-07-22 19:25 | disposition home or self-care (01) | LOC: SC 19:24 | PROVIDERS: ATTEND Internal Medicine Pulmonary Disease | DX: G47.33 Obstructive sleep apnea (adult) (pediatric) (principal); G47.61 Periodic limb movement disorder | CPT/HCPCS: 95811 ==

== ENCOUNTER 2020-07-29 15:08 | Outpatient (CLI) | payer MEDICAID ==
--- NOTE | 2020-07-29 14:03 | SLEEP CARE CONSULTATION ---
Information from patient questionnaire entered by Jaylene Fernandez. I have reviewed and concur with the information entered by Jaylene Fernandez. This document represents the service I personally performed and the decisions made by me, Debbi Castillo MD, [facility]. History of Present Illness Service Date and Time: 07/29/2020 1340 Initial [place] Sleepiness Scale score: 11 (in 2019) Additional HPI information: To minimize the risk of COVID-19 exposure, the patient has requested and consented to this telephone visit. The patient also agrees to having his insurance billed. HPI: Ms. Leblanc was called for follow up of the manual CPAP/BiPAP titration study she had on 07/22/2020. The polysomnography showed that CPAP was initiated at 4 cmH2O and titrated up to CPAP at 14 cmH2O. None of the tested pressures appeared to be optimal (AHI of 8.0 per hour on the final pressure). Oxygen saturation was minimally low. The patient appeared to have tolerated positive airway pressure therapy very well. The patients sleep efficiency was normal. The sleep architecture was abnormal for mild sleep fragmentation and reduced amount of time spent in REM sleep. There was severe periodic leg movement of sleep but none caused arousal/awakening. Cardiac rhythm was normal sinus rhythm without significant arrhythmia with occasional premature ventricular contractions and brief tachycardia (max heart rate of 114 beats per minute). No abnormal behavior (parasomnia) observed during the night. The patient was informed of these findings. I explained to her that she will need a high pressure setting. The patient is presently not on the positive airway pressure therapy yet. Sleep Study - Results Type of Sleep Study: Polysomnography (Titration) Allergies and Home Medications Drug allergies reviewed: Yes Home medication list reviewed: Yes Review of Systems Review of systems same as previous: Yes Physical Exam Height: 5 ft 4 in Impression and Plan IMPRESSION: 1. Obstructive Sleep Apnea-Hypopnea Syndrome, moderate, associated with mild hypoxemia and sleep fragmentation. Most likely, this is the cause of the patients symptoms of unrefreshed sleep, and excessive daytime sleepiness. Because the CPAP appeared ineffective, I will start her on a BiPAP set at 16/12 cmH2O. PLAN: 1. Prescription made for a BiPAP set at 16/12 cmH2O, heated humidifier, and related supplies. 2. Attempt to lose weight. 3. Return for follow up after one month on the treatment. Visit Type: Telehealth Video Video Type: Elisaimity Patient Location: Home Location of Provider: Home Patient agrees and consents to this telehealth visit type: Yes Patient agrees to have their insurance billed: Yes Time Spent with Patient (minutes): 15 Provider Statement: I spent 100% of the Telehealth Video Call with the patient with greater than 50% spent counseling the patient and coordination of care.
== END 2020-07-29 15:09 | disposition home or self-care (01) ==
LOC: SC 15:08
PROVIDERS: ATTEND Internal Medicine Pulmonary Disease
DX: G47.33 Obstructive sleep apnea (adult) (pediatric) (principal)

== ENCOUNTER 2020-11-04 16:44 | Outpatient (CLI) | payer MEDICAID | END 2020-11-04 16:45 | disposition home or self-care (01) | LOC: COV 16:44 | PROVIDERS: ATTEND Surgery | DX: Z01.812 Encounter for preprocedural laboratory examination (principal); A04.8 Other specified bacterial intestinal infections; G47.30 Sleep apnea, unspecified; E11.9 Type 2 diabetes mellitus without complications; Z79.4 Long term (current) use of insulin; Z20.822 Contact with and (suspected) exposure to COVID-19 ==

== ENCOUNTER 2020-11-06 06:40 | Day surgery (SDC) | payer MEDICAID ==
[2020-11-06] MEDS ORDERED: LACTATED RINGERS 1,000 ML IV ONE ×2 (06:48→08:13)
--- NOTE | 2020-11-06 07:13 | ANESTHESIA ---
Pre-Anesthesia VS, & Labs - Diagnosis Helicobacter pylori - Procedure EGD Vital Signs: Temp Pulse Resp BP Pulse Ox 36 C L 92 12 146/88 H 95 11/06/20 06:48 11/06/20 06:48 11/06/20 06:48 11/06/20 06:48 11/06/20 06:48 Height: 5 ft 4 in Weight (kg): 107.1 kg Body Mass Index: 40.5 BMI Classification: Morbidly Obese - NPO >8 hours - Is Patient ?: No - Lab Results Current Lab Results: Laboratory Tests 11/06/20 06:54: POC Whole Bld Glucose 250 H Lab results reviewed: Yes Home Medications and Allergies Home Medications: Ambulatory Orders Empagliflozin [Jardiance] 10 mg PO DAILY 10/30/20 Ondansetron Odt [Zofran Odt] 4 mg TL Q6H PRN 10/30/20 Insulin Aspart Protam & Aspart [Novolog Mix 70-30 Flexpen Syrn] 15 unit SUBQ 11/06/20 Atorvastatin [Lipitor] 10 mg PO QPM 06/04/20 Brexpiprazole [Rexulti] 4 mg PO DAILY 06/04/20 Doxepin HCl 10 mg PO QPM 06/04/20 Exenatide Microspheres [Bydureon Pen] 2 mg SQ OAW 06/04/20 Gabapentin 300 mg PO BID 06/04/20 Insulin Detemir [Levemir Flextouch] 15 unit SUBQ DAILY 06/04/20 Metformin HCl 1,000 mg PO BID 06/04/20 cloNIDine [Catapres] 0.1 mg PO ONCE 06/04/20 lisinopriL [Lisinopril] 20 mg PO DAILY 06/04/20 Insulin Detemir [Levemir Flextouch] 45 unit SUBQ QPM 06/05/20 Empagliflozin [Jardiance] 10 mg PO DAILY 10/30/20 Ondansetron Odt [Zofran Odt] 4 mg TL Q6H PRN 10/30/20 Insulin Aspart Protam & Aspart [Novolog Mix 70-30 Flexpen Syrn] 15 unit SUBQ 11/06/20 Allergies/Adverse Reactions: Allergies Allergy/AdvReac Type Severity Reaction Status Date / Time risperidone [From Risperdal] AdvReac Rash Verified 10/30/20 15:50 Anes History & Medical History - Anesthetic History Anesthesia Complications: reports: No previous complications Family history of Anesthesia Complications: Denies Family history of Malignant Hyperthermia: Denies - Medical History Cardiovascular: reports: Hypertension, High cholesterol Pulmonary: reports: Sleep apnea, CPAP use Gastrointestinal: reports: GERD, Chronic diarrhea, Other Urinary: reports: Frequency Neuro: reports: None Musculoskeletal: reports: Fibromyalgia, Chronic back pain Endocrine/Autoimmune: reports: Type 2 diabetes Blood Disorders: reports: None Skin: reports: Psoriasis Smoking Status: Never smoker - Surgical History General: reports: Cholecystectomy Gynecologic: reports: Tubal ligation Exam General: Alert, Oriented x3, Cooperative, No acute distress Dental: WNL Mouth Openin Fingerbreadth Respiratory: Lungs clear, Normal breath sounds, No respiratory distress, No accessory muscle use Cardiovascular: Regular rate, Normal S1, Normal S2, No murmurs Plan Anesthesia Type: General Consent for Procedure(s) Verified and Reviewed: Yes Code Status: Attempt Resuscitation ASA classification: 2-Mild systemic disease Is this case an emergency?: No
[2020-11-06] MEDS ORDERED: NALOXONE 0.4 MG/ML VIAL IVP PRN (07:17)
[2020-11-06] MEDS ORDERED: METOCLOPRAMIDE 10 MG/2 ML VIAL IVP PRN (07:17)
[2020-11-06] MEDS ORDERED: ONDANSETRON 4 MG/2 ML VIAL IVP PRN (07:17)
[2020-11-06] MEDS ORDERED: HYDROmorphone 0.5 MG/0.5 ML SYRINGE IVP PRN (07:17)
[2020-11-06] MEDS ORDERED: MORPHINE 2 MG/ML CARPUJECT IVP PRN (07:17)
[2020-11-06] MEDS ORDERED: fentaNYL 100 MCG/2 ML VIAL IVP PRN (07:17)
[2020-11-06] MEDS ORDERED: ATROPINE ABBOJECT 1 MG/10 ML SYRINGE IVP PRN (07:17)
[2020-11-06] MEDS ORDERED: ePHEDrine 50 MG/ML VIAL IVP PRN (07:17)
[2020-11-06] MEDS ORDERED: PROPOFOL 500 MG/50 ML 500 MG/50 ML VIAL ONE (07:34)
[2020-11-06] MEDS ORDERED: LIDOCAINE-MPF 2% 5 ML VIAL ONE (07:35)
[2020-11-06] MEDS ORDERED: MIDAZOLAM 2 MG/2 ML VIAL ONE (07:36)
[2020-11-06] MEDS ORDERED: KETAMINE 500 MG/10 ML VIAL ONE (07:36)
[2020-11-06] MEDS ORDERED: LACTATED RINGERS 1,000 ML IV SCH (08:00)
[2020-11-06 08:33] VITALS: BP 122/87
--- NOTE | 2020-11-06 10:03 | ANESTHESIA POST OP EVALUATION ---
Anesthesia Post Eval - Post Anesthesia Eval Vitals: Last Vital Signs Temp 36.2 C L 11/06/20 08:32 Pulse 87 11/06/20 08:32 Resp 13 11/06/20 08:32 BP 122/87 H 11/06/20 08:32 Pulse Ox 95 11/06/20 08:32 CV Function Including HR & BP: positive: Stable Pain Control: positive: Satisfactory Nausea & Vomiting: positive: Negative Mental Status: positive: Baseline Respiratory Status: Airway Patent Hydration Status: Satisfactory Anesthesia Complications: positive: None
== END 2020-11-06 06:41 | disposition home or self-care (01) ==
LOC: SDS 06:40
PROVIDERS: ATTEND Surgery
PROC: 0DB68ZX Excision of Stomach, Via Natural or Artificial Opening Endoscopic, Diagnostic (ICD-10-PCS; principal; 2020-11-06 07:30)
DX: K29.60 Other gastritis without bleeding (principal); B96.81 Helicobacter pylori [H. pylori] as the cause of diseases classified elsewhere; K44.9 Diaphragmatic hernia without obstruction or gangrene; K21.9 Gastro-esophageal reflux disease without esophagitis; E11.9 Type 2 diabetes mellitus without complications; I10 Essential (primary) hypertension; G47.30 Sleep apnea, unspecified; E78.00 Pure hypercholesterolemia, unspecified; K58.0 Irritable bowel syndrome with diarrhea; R35.0 Frequency of micturition; M79.7 Fibromyalgia; G89.29 Other chronic pain; M54.9 Dorsalgia, unspecified; E66.01 Morbid (severe) obesity due to excess calories; Z68.41 Body mass index [BMI] 40.0-44.9, adult; F90.9 Attention-deficit hyperactivity disorder, unspecified type; F43.10 Post-traumatic stress disorder, unspecified; F41.9 Anxiety disorder, unspecified; F32.9 Major depressive disorder, single episode, unspecified; Z79.4 Long term (current) use of insulin; Z79.899 Other long term (current) drug therapy
CPT/HCPCS: 43239; J7120

== ENCOUNTER 2020-11-26 08:00 | Outpatient (CLI) | payer MEDICAID ==
[2020-11-26 12:13] LABS: ESTIMATED AVERAGE GLUCOSE 226 mg/dL (70-100); HEMOGLOBIN A1c% 9.5 % (4.27-6.07)
[2020-11-26 12:16] LABS: CREATININE,URINE 179.6 mg/dL; MICROALBUM/CREATININE RATIO,UR 2.8 ug/mg (<30.0); MICROALBUMIN,URINE 0.5 mg/dL (0-300.0)
[2020-11-26 12:34] LABS: BASOPHILS % (AUTO) 0.4 %; EOSINOPHILS # (AUTO) 0.1 10^3/uL (0.0-0.7); EOSINOPHILS % (AUTO) 1.8 %; HGB - HEMOGLOBIN 16.3 g/dL (12.0-16.0); LYMPHOCYTES # (AUTO) 2.2 10^3/uL (1.5-3.5); LYMPHOCYTES % (AUTO) 32.6 %; MEAN CORPUSCULAR HEMOGLOBIN 29.4 pg (27.0-31.0); MEAN CORPUSCULAR HGB CONC 33.3 g/dL (32.0-36.0); MEAN CORPUSCULAR VOLUME 88.4 fL (81.0-99.0); MEAN PLATELET VOLUME 10.4 fL (7.9-10.8); MONOCYTES # (AUTO) 0.6 10^3/uL (0.0-1.0); MONOCYTES % (AUTO) 8.2 %; NEUTROPHILS # (AUTO) 3.8 10^3/uL (1.5-6.6); NEUTROPHILS % (AUTO) 56.7 %; PLT - PLATELET COUNT 331 10^3/uL (130-450); RED BLOOD COUNT 5.54 10^6/uL (4.20-5.40); RED CELL DISTRIBUTION WIDTH 12.3 % (12.0-15.0); WHITE BLOOD COUNT 6.7 x10^3/uL (4.8-10.8)
[2020-11-26 12:39] LABS: ALBUMIN/GLOBULIN RATIO 1.1 (1.0-2.2); ALKALINE PHOSPHATASE 103 IU/L (42-121); ALT ALANINE AMINOTRANSFERASE 26 IU/L (10-60); AST ASPARTATE AMINOTRANSFERASE 18 IU/L (10-42); BILIRUBIN,TOTAL 0.7 mg/dL (0.2-1.0); BUN - BLOOD UREA NITROGEN 14 mg/dL (6-20); CALCIUM 9.4 mg/dL (8.5-10.3); CARBON DIOXIDE - CO2 28 mmol/L (21-32); CHLORIDE 98 mmol/L (101-111); CHOL/HDL RATIO 4.4 (<4.4); CHOLESTEROL 213 mg/dL; CREATININE 0.7 mg/dL (0.4-1.0); GFR - MDRD 87 (>89); GLUCOSE 303 mg/dL (70-100); HDL CHOLESTEROL 48 mg/dL; LDL CHOLESTEROL,CALCULATED 133 mg/dL; LDL/HDL RATIO 2.8 (<4.4); POTASSIUM 4.2 mmol/L (3.5-5.0); SODIUM 135 mmol/L (135-145); TOTAL PROTEIN 7.6 g/dL (6.7-8.2); TRIGLYCERIDES 158 mg/dL; VLDL CHOLESTEROL 32 mg/dL
[2020-11-26 12:43] LABS: THYROID STIMULATING HORMONE 2.11 uIU/mL (0.34-5.60)
== END 2020-11-26 23:59 | disposition home or self-care (01) ==
LOC: LAB.WCP 08:00
PROVIDERS: ATTEND Physician Assistant Medical
DX: E78.5 Hyperlipidemia, unspecified (principal); E55.9 Vitamin D deficiency, unspecified; E11.9 Type 2 diabetes mellitus without complications; I10 Essential (primary) hypertension
CPT/HCPCS: 36415; 80053; 80061; 82043; 82306; 82570; 83036; 83721; 84443; 85025

== ENCOUNTER 2021-02-26 08:00 | Outpatient (CLI) | payer MEDICAID ==
[2021-02-26 12:27] LABS: ESTIMATED AVERAGE GLUCOSE 278 mg/dL (70-100); HEMOGLOBIN A1c% 11.3 % (4.27-6.07)
[2021-02-26 12:33] LABS: CALCIUM 9.3 mg/dL (8.5-10.3); CREATININE 0.7 mg/dL (0.4-1.0); POTASSIUM 4.6 mmol/L (3.5-5.0)
== END 2021-02-26 23:59 | disposition home or self-care (01) ==
LOC: LAB.WCP 08:00
PROVIDERS: ATTEND Physician Assistant Medical
DX: E11.9 Type 2 diabetes mellitus without complications (principal)
CPT/HCPCS: 36415; 80048; 83036

== ENCOUNTER 2021-02-26 10:35 | Outpatient (CLI) | payer MEDICAID ==
--- NOTE | 2021-02-26 12:50 | XRAY Report ---
PROCEDURE: Knee 3 View LT INDICATIONS: KNEE PAIN, LEFT TECHNIQUE: 3 views of the left knee(s) were acquired. COMPARISON: None. FINDINGS: Bones: No fractures or dislocations. There is calcification of the patellar ligament into the tibia l tubercle. No suspicious bony lesions. Degenerative changes are minimal. Soft tissues: No joint effusion. No suspicious soft tissue calcifications. IMPRESSION: No acute abnormality of the left knee. Reviewed by: Cory Tobin on 02/26/2021 12:49 PM PDT Approved by: Cory Tobin on 02/26/2021 12:49 PM PDT Station ID: [id number]
== END 2021-02-26 10:36 | disposition home or self-care (01) ==
LOC: DI.N 10:35
PROVIDERS: ATTEND Physician Assistant Medical
DX: M25.562 Pain in left knee (principal); E11.9 Type 2 diabetes mellitus without complications
CPT/HCPCS: 36415; 80048; 83036

== ENCOUNTER 2021-02-27 14:49 | Outpatient (CLI) | payer MEDICAID | END 2021-02-27 14:50 | disposition home or self-care (01) | LOC: COV 14:49 | PROVIDERS: ATTEND Surgery | DX: Z01.812 Encounter for preprocedural laboratory examination (principal); B96.81 Helicobacter pylori [H. pylori] as the cause of diseases classified elsewhere; E11.9 Type 2 diabetes mellitus without complications; Z79.4 Long term (current) use of insulin; G47.33 Obstructive sleep apnea (adult) (pediatric); Z20.822 Contact with and (suspected) exposure to COVID-19 ==

== ENCOUNTER 2021-03-03 06:05 | Day surgery (SDC) | payer MEDICAID ==
[2021-03-03] MEDS ORDERED: LACTATED RINGERS 1,000 ML IV ONE ×2 (06:30→08:10)
[2021-03-03] MEDS ORDERED: MIDAZOLAM 2 MG/2 ML VIAL ONE (07:27)
[2021-03-03] MEDS ORDERED: KETAMINE 500 MG/10 ML VIAL ONE (07:27)
[2021-03-03] MEDS ORDERED: LIDOCAINE-MPF 2% 5 ML VIAL ONE (07:29)
[2021-03-03] MEDS ORDERED: PROPOFOL 200 MG/20 ML VIAL IVP ONE (07:29)
--- NOTE | 2021-03-03 08:14 | ANESTHESIA ---
Pre-Anesthesia VS, & Labs - Diagnosis H Pylori, gastroporesis - Procedure egd Vital Signs: Temp Pulse Resp BP Pulse Ox 36.7 C 98 14 129/78 92 03/03/21 08:08 03/03/21 08:08 03/03/21 08:08 03/03/21 08:08 03/03/21 08:08 Height: 5 ft 4 in Weight (kg): 108.2 kg Body Mass Index: 40.9 BMI Classification: Morbidly Obese - NPO >8 hours - Is Patient ?: No - Lab Results Current Lab Results: Laboratory Tests 03/03/21 06:32: POC Whole Bld Glucose 367 H Lab results reviewed: Yes Home Medications and Allergies Atorvastatin [Lipitor] 10 mg PO QPM 06/04/20 Brexpiprazole [Rexulti] 4 mg PO DAILY 06/04/20 Doxepin HCl 10 mg PO QPM 06/04/20 Exenatide Microspheres [Bydureon Pen] 2 mg SQ OAW 06/04/20 Gabapentin 300 mg PO BID 06/04/20 Insulin Detemir [Levemir Flextouch] 15 unit SUBQ DAILY 06/04/20 Metformin HCl 1,000 mg PO BID 06/04/20 cloNIDine [Catapres] 0.1 mg PO ONCE 06/04/20 lisinopriL [Lisinopril] 20 mg PO DAILY 06/04/20 Insulin Detemir [Levemir Flextouch] 45 unit SUBQ QPM 06/05/20 Empagliflozin [Jardiance] 10 mg PO DAILY 10/30/20 Ondansetron Odt [Zofran Odt] 4 mg TL Q6H PRN 10/30/20 Insulin Aspart Prot/Insuln Asp [Novolog Mix 70-30 Flexpen Syrn] 15 unit SUBQ AC 11/06/20 Allergies/Adverse Reactions: Allergies Allergy/AdvReac Type Severity Reaction Status Date / Time risperidone [From Risperdal] AdvReac Rash Verified 10/30/20 15:50 Anes History & Medical History - Anesthetic History Anesthesia Complications: reports: No previous complications Family history of Anesthesia Complications: Denies Family history of Malignant Hyperthermia: Denies - Medical History Cardiovascular: reports: Hypertension, High cholesterol Pulmonary: reports: Sleep apnea Gastrointestinal: reports: GERD, Chronic diarrhea, Other Urinary: reports: Frequency Neuro: reports: None Musculoskeletal: reports: Fibromyalgia, Chronic back pain Endocrine/Autoimmune: reports: Type 2 diabetes Blood Disorders: reports: None Skin: reports: Psoriasis Smoking Status: Never smoker - Surgical History General: reports: Cholecystectomy, EGD Gynecologic: reports: Tubal ligation Exam General: Alert, Oriented x3, Cooperative Dental: WNL Mouth Openin Fingerbreadth Neck Mobility: Normal Mallampati classification: III Thyromental Distance: 4-6 cm Respiratory: Lungs clear Cardiovascular: Regular rate Plan Anesthesia Type: Total IV Consent for Procedure(s) Verified and Reviewed: Yes Code Status: Attempt Resuscitation ASA classification: 3-Severe systemic disease Is this case an emergency?: No
[2021-03-03 08:23] VITALS: BP 141/81
--- NOTE | 2021-03-03 08:34 | ANESTHESIA POST OP EVALUATION ---
Anesthesia Post Eval - Post Anesthesia Eval Vitals: Last Vital Signs Temp 36.6 C 03/03/21 08:21 Pulse 92 03/03/21 08:21 Resp 16 03/03/21 08:21 BP 141/81 H 03/03/21 08:21 Pulse Ox 94 03/03/21 08:21 CV Function Including HR & BP: Stable Pain Control: Satisfactory Nausea & Vomiting: Negative Mental Status: Baseline Respiratory Status: Airway Patent Hydration Status: Satisfactory Anesthesia Complications: None
== END 2021-03-03 06:06 | disposition home or self-care (01) ==
LOC: SDS 06:05
PROVIDERS: ATTEND Surgery
PROC: 0DB68ZX Excision of Stomach, Via Natural or Artificial Opening Endoscopic, Diagnostic (ICD-10-PCS; 2021-03-03)
PROC: 0DB98ZX Excision of Duodenum, Via Natural or Artificial Opening Endoscopic, Diagnostic (ICD-10-PCS; principal; 2021-03-03 07:30)
DX: K29.50 Unspecified chronic gastritis without bleeding (principal); K44.9 Diaphragmatic hernia without obstruction or gangrene; G47.33 Obstructive sleep apnea (adult) (pediatric); E66.01 Morbid (severe) obesity due to excess calories; Z68.41 Body mass index [BMI] 40.0-44.9, adult; K21.9 Gastro-esophageal reflux disease without esophagitis; K58.9 Irritable bowel syndrome, unspecified
CPT/HCPCS: 43239; J7120

== ENCOUNTER 2021-05-26 09:22 | Outpatient (CLI) | payer MEDICAID ==
[2021-05-26 12:33] LABS: ALBUMIN 3.9 g/dL (3.2-5.5); ALBUMIN/GLOBULIN RATIO 1.2 (1.0-2.2); ALKALINE PHOSPHATASE 128 IU/L (42-121); ALT ALANINE AMINOTRANSFERASE 30 IU/L (10-60); AST ASPARTATE AMINOTRANSFERASE 17 IU/L (10-42); BILIRUBIN,TOTAL 0.6 mg/dL (0.2-1.0); BUN - BLOOD UREA NITROGEN 12 mg/dL (6-20); CALCIUM 9.1 mg/dL (8.5-10.3); CARBON DIOXIDE - CO2 26 mmol/L (21-32); CHLORIDE 100 mmol/L (101-111); CHOL/HDL RATIO 5.2 (<4.4); CHOLESTEROL 194 mg/dL; CREATININE 0.6 mg/dL (0.4-1.0); GFR - MDRD 104 (>89); GLUCOSE 377 mg/dL (70-100); HDL CHOLESTEROL 37 mg/dL; LDL CHOLESTEROL,CALCULATED 109 mg/dL; LDL/HDL RATIO 2.9 (<4.4); POTASSIUM 4.1 mmol/L (3.5-5.0); SODIUM 135 mmol/L (135-145); TOTAL PROTEIN 7.2 g/dL (6.7-8.2); TRIGLYCERIDES 242 mg/dL; VLDL CHOLESTEROL 48 mg/dL
[2021-05-26 13:27] LABS: ESTIMATED AVERAGE GLUCOSE 292 mg/dL (70-100); HEMOGLOBIN A1c% 11.8 % (4.27-6.07)
== END 2021-05-26 23:59 | disposition home or self-care (01) ==
LOC: LAB.S 09:22
PROVIDERS: ATTEND Physician Assistant Medical
DX: E11.9 Type 2 diabetes mellitus without complications (principal)
CPT/HCPCS: 36415; 80053; 80061; 83036; 83721

== ENCOUNTER 2021-07-03 22:03 | Emergency (ER) | payer MEDICAID ==
[2021-07-03 22:17] VITALS: BP 151/101
--- NOTE | 2021-07-03 23:04 | ED Physician Documentation ---
History of Present Illness - Stated complaint Stated Complaint: OD - Chief complaint Chief Complaint: General - History obtained from History obtained from: Patient - Additonal information Additional information: 56-year-old woman presents status post taking external dose of 45 units of short acting NovoLog instead of the 45 units of long-acting insulin that she usually takes around 9:30 PM she was also supposed to take a sliding scale of NovoLog but it is normally her only around 15 units. Her fingerstick glucose at that time was 496. Patient was concerned and came to the emergency department immediately. She endorses mild headache, epigastric abdominal pain, and dizziness that started after realizing her mistake. Her symptoms are extremely mild and she is declining medication for it at this time. patient had been feeling normal just prior to the mistaken medication administration. Review of Systems Ten Systems: 10 systems reviewed and negative Constitutional: denies: Fever, Chills Cardiac: denies: Chest pain / pressure Respiratory: denies: Dyspnea PD PAST MEDICAL HISTORY - Past Medical History Cardiovascular: Hypertension, High cholesterol Respiratory: Sleep apnea Neuro: None Endocrine/Autoimmune: Type 2 diabetes GI: GERD, Chronic diarrhea, Other DOCUMENT MANAGEMENT SPECIALIST: None : Frequency HEENT: Chronic vision loss Psych: Depression, Anxiety, Schizophrenia, Panic attacks, Other Musculoskeletal: Fibromyalgia, Chronic back pain Derm: Psoriasis - Past Surgical History Past Surgical History: Yes General: Cholecystectomy, EGD /DOCUMENT MANAGEMENT SPECIALIST: Tubal ligation - Present Medications Home Medications: Ambulatory Orders Medication Instructions Recorded Confirmed Atorvastatin [Lipitor] 10 mg PO QPM 06/04/20 02/20/21 Brexpiprazole [Rexulti] 4 mg PO DAILY 06/04/20 02/20/21 Doxepin HCl 10 mg PO QPM 06/04/20 02/20/21 Exenatide Microspheres [Bydureon 2 mg SQ OAW 06/04/20 02/20/21 Pen] Gabapentin 300 mg PO BID 06/04/20 02/20/21 Insulin Detemir [Levemir Flextouch] 15 unit SUBQ DAILY 06/04/20 02/20/21 Metformin HCl 1,000 mg PO BID 06/04/20 02/20/21 cloNIDine [Catapres] 0.1 mg PO ONCE 06/04/20 02/20/21 lisinopriL [Lisinopril] 20 mg PO DAILY 06/04/20 02/20/21 Insulin Detemir [Levemir Flextouch] 45 unit SUBQ QPM 06/05/20 02/20/21 Empagliflozin [Jardiance] 10 mg PO DAILY 10/30/20 02/20/21 Ondansetron Odt [Zofran Odt] 4 mg TL Q6H PRN 10/30/20 02/20/21 Insulin Aspart Prot/Insuln Asp 15 unit SUBQ AC 11/06/20 02/20/21 [Novolog Mix 70-30 Flexpen Syrn] - Allergies Allergies/Adverse Reactions: Allergies Allergy/AdvReac Type Severity Reaction Status Date / Time risperidone [From Risperdal] AdvReac Rash Verified 07/03/21 22:17 - Social History Does the pt smoke?: No Smoking Status: Never smoker Does the pt drink ETOH?: No Does the pt have substance abuse?: No - Immunizations Immunizations are current?: Yes - POLST Patient has POLST: No PD ED PE NORMAL - Vitals Vital signs reviewed: Yes - General General: Alert and oriented X 3, No acute distress, Well developed/nourished - HEENT HEENT: Atraumatic, PERRL, EOMI - Neck Neck: Supple, no meningeal sign - Cardiac Cardiac: RRR - Respiratory Respiratory: No respiratory distress, Clear bilaterally - Abdomen Abdomen: Non tender, Non distended - Derm Derm: Normal color, Warm and dry - Extremities Extremities: No deformity - Neuro Neuro: Alert and oriented X 3 - Psych Psych: Normal mood, Normal affect Results - Vitals Vitals: Vital Signs - 24 hr 07/03/21 22:13 Temperature 36.1 C L Heart Rate 99 Respiratory 18 Rate Blood Pressure 151/101 H O2 Saturation 96 Oxygen O2 Source Room air - Labs Labs: Laboratory Tests 07/03/21 22:21 POC Whole Bld Glucose 507 H* PD MEDICAL DECISION MAKING - ED course ED course: Patient was endorsing mild headache, epigastric abdominal discomfort, and dizzin ess that started after taking the NovoLog. I discussed with her the poison control states that NovoLog peaks at 1 to 2 hours so because her sugars are so high 80s very unlikely that she will have any adverse effects from this. It stays in the system for 46 hours so they are recommending that she monitor her sugar at home for 3 hours with hourly fingerstick glucose and call poison control once an hour to check in. She should then follow-up with her primary doctor for further management because she probably needs her sliding scale insulin increased given that she says it usually does very little to lower her sugar. Offered patient tylenol and pepcid for her headache and abdominal discomfort which she declined, stating she is feeling better and can take at home. Strict return precautions given. Departure - Departure Disposition: , Self Care Clinical Impression: Accidental overdose Condition: Good Instructions: ED Screening Exam Medical Nonurgent Comments: He was seen in the emergency department for accidental overdose of NovoLog. It looks like you are not experiencing hypoglycemia (low blood sugar). NovoLog has it strongest effect 1 to 2 hours after it is given and stays in the system for 46 hours. We called poison control who recommended that you go home and check your sugar hourly for 3 to 4 hours and call poison control once an hour to check in. If your sugar gets below 100 and you should come to the emergency department. Please follow-up with your primary doctor this week for further management of your diabetes. Return to the emergency department if you have any new or worsening symptoms or other concerns.
== END 2021-07-03 23:08 | disposition home or self-care (01) ==
LOC: ED 22:03
DX: T38.3X1A Poisoning by insulin and oral hypoglycemic [antidiabetic] drugs, accidental (unintentional), initial encounter (principal); R51.9 Headache, unspecified; R10.9 Unspecified abdominal pain; E11.9 Type 2 diabetes mellitus without complications; I10 Essential (primary) hypertension; R35.0 Frequency of micturition; K52.9 Noninfective gastroenteritis and colitis, unspecified; H54.7 Unspecified visual loss; E78.00 Pure hypercholesterolemia, unspecified; F32.9 Major depressive disorder, single episode, unspecified; F41.9 Anxiety disorder, unspecified; F20.9 Schizophrenia, unspecified; F41.0 Panic disorder [episodic paroxysmal anxiety]; G89.29 Other chronic pain; M54.9 Dorsalgia, unspecified; M79.7 Fibromyalgia; Z79.899 Other long term (current) drug therapy; Z79.4 Long term (current) use of insulin; Z79.84 Long term (current) use of oral hypoglycemic drugs
CPT/HCPCS: 99283; 99284

== ENCOUNTER 2021-08-29 10:10 | Outpatient (CLI) | payer MEDICAID ==
[2021-08-29 15:14] LABS: CALCIUM 9.1 mg/dL (8.5-10.3); CREATININE 0.6 mg/dL (0.4-1.0); POTASSIUM 4.3 mmol/L (3.5-5.0)
[2021-08-29 20:24] LABS: ESTIMATED AVERAGE GLUCOSE 309 mg/dL (70-100); HEMOGLOBIN A1c% 12.4 % (4.27-6.07)
== END 2021-08-29 10:11 | disposition home or self-care (01) ==
LOC: LAB.N 10:10
PROVIDERS: ATTEND Physician Assistant Medical
DX: E11.9 Type 2 diabetes mellitus without complications (principal)
CPT/HCPCS: 36415; 80048; 83036

== ENCOUNTER 2021-10-17 06:45 | Emergency (ER) | payer MEDICAID ==
[2021-10-17 07:26] LABS: BASOPHILS % (AUTO) 0.4 %; EOSINOPHILS # (AUTO) 0.1 10^3/uL (0.0-0.7); EOSINOPHILS % (AUTO) 1.3 %; HCT - HEMATOCRIT 46.9 % (37.0-47.0); HGB - HEMOGLOBIN 16.5 g/dL (12.0-16.0); LYMPHOCYTES # (AUTO) 0.8 10^3/uL (1.5-3.5); LYMPHOCYTES % (AUTO) 9.7 %; MEAN CORPUSCULAR HEMOGLOBIN 29.9 pg (27.0-31.0); MEAN CORPUSCULAR HGB CONC 35.2 g/dL (32.0-36.0); MEAN CORPUSCULAR VOLUME 85.1 fL (81.0-99.0); MEAN PLATELET VOLUME 10.3 fL (7.9-10.8); MONOCYTES % (AUTO) 12.1 %; NEUTROPHILS % (AUTO) 75.5 %; PLT - PLATELET COUNT 231 10^3/uL (130-450); RED BLOOD COUNT 5.51 10^6/uL (4.20-5.40); RED CELL DISTRIBUTION WIDTH 12.3 % (12.0-15.0); WHITE BLOOD COUNT 7.9 x10^3/uL (4.8-10.8)
[2021-10-17] MEDS ORDERED: FAMOTIDINE 20 MG TABLET PO STA (07:26)
[2021-10-17] MEDS ORDERED: SUCRALFATE 1 GM/10 ML UDC PO STA (07:26)
[2021-10-17] MEDS ORDERED: MAG HYDROX/AL HYDROX/SIMETH 30 ML UDC PO STA (07:26)
[2021-10-17 07:31] LABS: ALBUMIN 4.1 g/dL (3.2-5.5); ALBUMIN/GLOBULIN RATIO 1.2 (1.0-2.2); BILIRUBIN,TOTAL 0.5 mg/dL (0.2-1.0); CALCIUM 9.1 mg/dL (8.5-10.3); CREATININE 0.7 mg/dL (0.4-1.0); POTASSIUM 4.3 mmol/L (3.5-5.0); TOTAL PROTEIN 7.4 g/dL (6.7-8.2)
--- NOTE | 2021-10-17 07:34 | ED Physician Documentation ---
History of Present Illness - Stated complaint Stated Complaint: LT SIDE PX/NAUSEA - Chief complaint Chief Complaint: Abd Pain - History obtained from History obtained from: Patient - History of Present Illness Timing: Today Pain level max: 6 Pain level now: 5 - Additonal information Additional information: Patient is a 56-year-old female who presents to the emergency department stating that she has pain in her left flank that radiates to her epigastric region. Nothing seems to make it better or worse. She states that she woke up at 2 AM with this pain. Has a history of gastric ulcers, not currently on medication. She is diabetic but has not taken her diabetes medication. Has not taken anything for the pain. Has nausea currently. No vomiting. No diarrhea or constipation. No fevers. Occasional chill. No rectal bleeding. Patient states that she ate pizza last night for dinner. Review of Systems Constitutional: denies: Fever, Chills Cardiac: denies: Chest pain / pressure Respiratory: denies: Cough GI: denies: Vomiting, Diarrhea, Hematemesis, Bloody / black stool Musculoskeletal: denies: Neck pain, Back pain PD PAST MEDICAL HISTORY - Past Medical History Cardiovascular: Hypertension, High cholesterol Respiratory: Sleep apnea Neuro: None Endocrine/Autoimmune: Type 2 diabetes GI: GERD, Chronic diarrhea, Other GUILLOTINE TRIMMER: None : Frequency HEENT: Chronic vision loss Psych: Depression, Anxiety, Schizophrenia, Panic attacks, Other Musculoskeletal: Fibromyalgia, Chronic back pain Derm: Psoriasis - Past Surgical History Past Surgical History: Yes General: Cholecystectomy, EGD /GUILLOTINE TRIMMER: Tubal ligation - Present Medications Home Medications: Ambulatory Orders Medication Instructions Recorded Confirmed Atorvastatin [Lipitor] 10 mg PO QPM 06/04/20 02/20/21 Brexpiprazole [Rexulti] 4 mg PO DAILY 06/04/20 02/20/21 Doxepin HCl 10 mg PO QPM 06/04/20 02/20/21 Exenatide Microspheres [Bydureon 2 mg SQ OAW 06/04/20 02/20/21 Pen] Gabapentin 300 mg PO BID 06/04/20 02/20/21 Insulin Detemir [Levemir Flextouch] 15 unit SUBQ DAILY 06/04/20 02/20/21 Metformin HCl 1,000 mg PO BID 06/04/20 02/20/21 cloNIDine [Catapres] 0.1 mg PO ONCE 06/04/20 02/20/21 lisinopriL [Lisinopril] 20 mg PO DAILY 06/04/20 02/20/21 Insulin Detemir [Levemir Flextouch] 45 unit SUBQ QPM 06/05/20 02/20/21 Empagliflozin [Jardiance] 10 mg PO DAILY 10/30/20 02/20/21 Ondansetron Odt [Zofran Odt] 4 mg TL Q6H PRN 10/30/20 02/20/21 Insulin Aspart Prot/Insuln Asp 15 unit SUBQ AC 11/06/20 02/20/21 [Novolog Mix 70-30 Flexpen Syrn] Esomeprazole Magnesium [Nexium] 40 mg PO DAILY #30 cap.sr 10/17/21 HYDROcod/ACETAM 5/325 [[place]reon 5/325] 1 - 2 ea PO Q6H PRN #14 tablet 10/17/21 Ondansetron Odt [Zofran] 4 mg TL Q6H PRN #10 tablet 10/17/21 - Allergies Allergies/Adverse Reactions: Allergies Allergy/AdvReac Type Severity Reaction Status Date / Time risperidone [From Risperdal] AdvReac Rash Verified 07/03/21 22:17 - Social History Does the pt smoke?: No Smoking Status: Never smoker Does the pt drink ETOH?: No Does the pt have substance abuse?: No - Immunizations Immunizations are current?: Yes - POLST Patient has POLST: No PD ED PE NORMAL - Vitals Vital signs reviewed: Yes - General General: Alert and oriented X 3, No acute distress - HEENT HEENT: Moist mucous membranes - Neck Neck: Supple, no meningeal sign - Cardiac Cardiac: RRR, Strong equal pulses - Respiratory Respiratory: No respiratory distress, Clear bilaterally - Abdomen Abdomen: Soft, Non distended, Other (TTP epigastric/LUQ, no peritoneal signs.) - Derm Derm: Warm and dry, No rash - Extremities Extremities: No edema, No calf tenderness / cord - Neuro Neuro: Alert and oriented X 3, radioisotope technician 2-12 intact, No motor deficit, No sensory deficit, Normal speech Eye Opening: Spontaneous Motor: Obeys Commands Verbal: Oriented GCS Score: 15 - Psych Psych: Normal mood, Normal affect Results - Vitals Vitals: Vital Signs - 24 hr 10/17/21 06:56 Temperature 37.4 C Heart Rate 128 H Respiratory 18 Rate Blood Pressure 151/92 H O2 Saturation 95 Oxygen O2 Source Room air - Labs Labs: Laboratory Tests 10/17/21 10/17/21 10/17/21 07:05 07:10 07:10 WBC 7.9 RBC 5.51 H Hgb 16.5 H Hct 46.9 MCV 85.1 MCH 29.9 MCHC 35.2 RDW 12.3 Plt Count 231 MPV 10.3 Neut # (Auto) 6.0 Lymph # (Auto) 0.8 L [place] # (Auto) 1.0 Eos # (Auto) 0.1 Baso # (Auto) 0.0 Absolute Nucleated RBC 0.00 Nucleated RBC % 0.0 Sodium 133 L Potassium 4.3 Chloride 99 L Carbon Dioxide 24 Anion Gap 10.0 BUN 14 Creatinine 0.7 Estimated GFR (MDRD) 87 L Glucose 394 H Calcium 9.1 Total Bilirubin 0.5 AST 30 ALT 35 Alkaline Phosphatase 135 H Total Protein 7.4 Albumin 4.1 Globulin 3.3 Albumin/Globulin Ratio 1.2 Lipase 34 Urine Color YELLOW Urine Clarity CLEAR Urine pH 5.5 Ur Specific [place] 1.020 Urine Protein NEGATIVE Urine Glucose (UA) >=1000 H Urine Ketones NEGATIVE Urine Occult Blood NEGATIVE Urine Nitrite NEGATIVE Urine Bilirubin NEGATIVE Urine Urobilinogen 0.2 (NORMAL) Ur Leukocyte Esterase NEGATIVE Ur Microscopic Review NOT INDICATED Urine Culture Comments NOT INDICATED - Rads (name of study) CT abd/pelvis Radiology: Final report received, EMP read contemporaneously, See rad report PD MEDICAL DECISION MAKING - ED course Complexity details: reviewed results, re-evaluated patient, considered differential, d/w patient ED course: Epigastric pain resolved with GI cocktail. No acute findings on CT abdomen and pelvis. Flank pain resolved with a small amount of morphine. Ambulating without any difficulty. No focal neurological deficits. Will prescribe a small amount of pain medication for home and treat for gastritis versus GERD. Patient counseled regarding signs and symptoms for which I believe and urgent re- evaluation would be necessary. Patient with good understanding of and agreement to plan and is comfortable going home at this time This document was made in part using voice recognition software. While efforts are made to proofread this document, sound alike and grammatical errors may occur. I am prescribing a short course of short-acting opioid pain medication for this patient. I have reviewed the patients FIBROUS PLASTERER and no concerning findings were noted. I have discussed that the opioids are for short term therapy only, and will not be refilled from the ED. Departure - Departure Disposition: 01 Home, Self Care Clinical Impression: Flank pain Gastritis Qualifiers: Gastritis type: unspecified gastritis Chronicity: acute Gastritis bleeding: without bleeding Qualified Code(s): K29.00 - Acute gastritis without bleeding Condition: Good Instructions: ED Abdominal Pain Female Non-Specific Abdominal Pain, ED PUD Vs Gastritis Follow-Up: Areli Vera PA-C [Primary Care Provider] - Within 1 week Prescriptions: Esomeprazole Magnesium [Nexium] 40 mg PO DAILY #30 cap.sr HYDROcod/ACETAM 5/325 [[place] 5/325] 1 - 2 ea PO Q6H PRN #14 tablet PRN Reason: Pain Ondansetron Odt [Zofran] 4 mg TL Q6H PRN #10 tablet PRN Reason: Nausea / Vomiting Comments: Please follow-up with your doctor for further care. Return if you worsen. Drink plenty of fluids. Eat a bland diet. Avoid coffee, alcohol, fried foods, spicy foods. Your CT scan does not show any acute abnormalities today. Your prescriptions were sent to [facility] in [place]. I am prescribing a short course of narcotic pain medication for you. These are potentially dangerous and addictive medications that should be used carefully. These medications may constipate you. Take an [id number] stool softener (docusate) twice daily with plenty of water while taking these medications. If you go 24 hours without a bowel movement, take [id number] miralax, per package instructions. Do not drink or drive while taking these medications. If you received narcotic or sedating medications while in the emergency department, do not drive for 24 hours. Store this medication in a safe, secure place and out of reach of children. It is a violation of federal law to give or sell this medication to another person or to use in a manner other than prescribed. The ED will not refill narcotic prescriptions, including prescriptions lost or stolen. To dispose of unwanted medications: 1. [facility] at [address] in [place] has a medication drop box. They accept prescription medications (in pill form) Tuesday through Tuesday 9:00 a.m. to 5:00 p.m. 2. The [facility] [employer] accepts prescription medications (in pill form only) for disposal year round. Call for more information. 3. Contact the [facility] for the next [facility] sponsored prescription drug collection event. , [phone], or [phone];
[2021-10-17 07:40] LABS: BILIRUBIN,URINE NEGATIVE (NEGATIVE); GLUCOSE, URINE (UA) >=1000 mg/dL (NEGATIVE); KETONES,URINE (UA) NEGATIVE (NEGATIVE); LEUKOCYTE ESTERASE, URINE NEGATIVE (NEGATIVE); NITRITE,URINE NEGATIVE (NEGATIVE); OCCULT BLOOD,URINE NEGATIVE (NEGATIVE); PH,URINE 5.5 PH (5.0-7.5); PROTEIN,URINE NEGATIVE (NEGATIVE); UROBILINOGEN,URINE 0.2 (NORMAL) E.U./dL (NORMAL)
[2021-10-17 07:42] LABS: CLARITY,URINE CLEAR (CLEAR)
[2021-10-17] MEDS ORDERED: IOVERSOL 320 100 ML VIAL IVP ONE ×2 (08:01→09:20)
[2021-10-17] MEDS ORDERED: MORPHINE 2 MG/ML CARPUJECT IVP STA (08:23)
--- NOTE | 2021-10-17 08:41 | CT Report ---
PROCEDURE: Abdomen/Pelvis W INDICATIONS: L sided abd pain CONTRAST: IV CONTRAST: Optiray 320 ml: 100 PO CONTRAST: *NO PO CONTRAST TECHNIQUE: After the administration of IV contrast, 5 mm thick sections acquired from the diaphragms to the symp hysis. 5 mm thick coronal and sagittal reformats were acquired. For radiation dose reduction, the f ollowing was used: automated exposure control, adjustment of mA and/or kV according to patient size. COMPARISON: None. FINDINGS: Image quality: Excellent. ABDOMEN: Lung bases: Lung bases are clear. Heart size is normal. Solid organs: An enlarged, fatty liver can be seen. No focal liver lesions are seen. The spleen demon strates normal size and demonstrates no focal lesions. An accessory splenule is incidentally noted al geovanna the inferior aspect of the primary spleen. Gallbladder has been removed. Biliary system is non dilated. Pancreas enhances normally. No adrenal nodules. Kidneys demonstrate normal size and enhancement, without hydronephrosis. At the superior pole of the left kidney, there is a 1.5 cm cyst that measures 11 Hounsfield units. Peritoneum and bowel: Bowel loops demonstrate normal wall thickness and caliber. No free fluid or a ir. Nodes and vessels: No retroperitoneal or mesenteric adenopathy by size criteria. Aorta and inferior vena cava are normal in size. Miscellaneous: No ventral hernias. PELVIS: Genitourinary: Bladder wall thickness is normal. The uterus demonstrates an unremarkable appearance for age. No adnexal masses are seen. Miscellaneous: No inguinal hernias or adenopathy. Bones: No suspicious bony lesions. No vertebral body compression fractures. Focal L4-L5 degenerati ve change is seen. Milder degenerative changes are seen elsewhere. Minimal dextroconvex sclerotic cu rvature is seen. IMPRESSION: A cause of left-sided abdominal pain is not seen. Negative for diverticulitis or left-sided colitis. No left pelvic/ovarian pathology is seen. Incidental note is made of: Enlarged, fatty liver Cholecystectomy Accessory splenule Focal L4-L5 degenerative change Reviewed by: Jorge Queen MD on 10/17/2021 7:[address] [facility] Approved by: Jorge Queen MD on 10/17/2021 7:[address] [facility] Station ID: [id number]
[2021-10-17 09:27] VITALS: BP 127/99
== END 2021-10-17 09:27 | disposition home or self-care (01) ==
LOC: ED 06:45
DX: K29.00 Acute gastritis without bleeding (principal)
CPT/HCPCS: 36415; 74177; 80053; 81003; 83690; 85025; 96374; 99284; A9270; Q9967; 81001; 87086

== ENCOUNTER 2021-10-26 11:11 | Outpatient (CLI) | payer MEDICAID ==
--- NOTE | 2021-10-26 17:27 | XRAY Report ---
PROCEDURE: Chest 2 View X-Ray INDICATIONS: OXYGEN SATURATION LOW TECHNIQUE: 2 view(s) of the chest. COMPARISON: None. FINDINGS: Surgical changes and devices: Cholecystectomy clips.. Lungs and pleura: No pleural effusions or pneumothorax. Opacities in the free of the lung bases bila terally. Elevated right hemidiaphragm. Mediastinum: Mediastinal contours are normal. Heart size is normal. Bones and chest wall: No suspicious bony abnormalities. Soft tissues appear unremarkable. IMPRESSION: Basilar lung opacities which could represent atelectasis or pneumonia. Reviewed by: Tracy Baldwin MD, PhD on 10/26/2021 5:25 PM PST Approved by: Tracy Baldwin MD, PhD on 10/26/2021 5:25 PM PST Station ID: [id number]
== END 2021-10-26 23:59 | disposition home or self-care (01) ==
LOC: DI.N 11:11
PROVIDERS: ATTEND Physician Assistant
DX: U07.1 COVID-19 (principal); R91.8 Other nonspecific abnormal finding of lung field

== ENCOUNTER 2021-12-09 14:50 | Outpatient (CLI) | payer MEDICAID ==
[2021-12-09 18:20] LABS: ALBUMIN 4.3 g/dL (3.2-5.5); ALBUMIN/GLOBULIN RATIO 1.3 (1.0-2.2); ALKALINE PHOSPHATASE 122 IU/L (42-121); ALT ALANINE AMINOTRANSFERASE 35 IU/L (10-60); AST ASPARTATE AMINOTRANSFERASE 26 IU/L (10-42); BILIRUBIN,TOTAL 0.9 mg/dL (0.2-1.0); BUN - BLOOD UREA NITROGEN 11 mg/dL (6-20); CALCIUM 9.3 mg/dL (8.5-10.3); CARBON DIOXIDE - CO2 26 mmol/L (21-32); CHLORIDE 98 mmol/L (101-111); CHOL/HDL RATIO 5.3 (<4.4); CHOLESTEROL 232 mg/dL; CREATININE 0.8 mg/dL (0.4-1.0); GFR - MDRD 74 (>89); GLUCOSE 391 mg/dL (70-100); HDL CHOLESTEROL 44 mg/dL; LDL CHOLESTEROL,CALCULATED 125 mg/dL; LDL/HDL RATIO 2.8 (<4.4); POTASSIUM 4.2 mmol/L (3.5-5.0); SODIUM 132 mmol/L (135-145); TOTAL PROTEIN 7.5 g/dL (6.7-8.2); TRIGLYCERIDES 317 mg/dL; VLDL CHOLESTEROL 63 mg/dL
[2021-12-09 20:56] LABS: ESTIMATED AVERAGE GLUCOSE 298 mg/dL (70-100)
== END 2021-12-09 14:51 | disposition home or self-care (01) ==
LOC: LAB.N 14:50
PROVIDERS: ATTEND Physician Assistant Medical
DX: E11.9 Type 2 diabetes mellitus without complications (principal)
CPT/HCPCS: 36415; 80053; 80061; 83036; 83721

== ENCOUNTER 2022-03-08 10:11 | Outpatient (CLI) | payer MEDICAID ==
[2022-03-08 12:22] LABS: BUN - BLOOD UREA NITROGEN 13 mg/dL (6-20); CALCIUM 9.4 mg/dL (8.5-10.3); CARBON DIOXIDE - CO2 27 mmol/L (21-32); CHLORIDE 102 mmol/L (101-111); CHOL/HDL RATIO 5.2 (<4.4); CHOLESTEROL 197 mg/dL; CREATININE 0.6 mg/dL (0.4-1.0); GFR - MDRD 103 (>89); GLUCOSE 302 mg/dL (70-100); HDL CHOLESTEROL 38 mg/dL; LDL CHOLESTEROL,CALCULATED 117 mg/dL; LDL/HDL RATIO 3.1 (<4.4); POTASSIUM 4.2 mmol/L (3.5-5.0); SODIUM 137 mmol/L (135-145); TRIGLYCERIDES 210 mg/dL; VLDL CHOLESTEROL 42 mg/dL
[2022-03-08 12:31] LABS: CREATININE,URINE 92.9 mg/dL; MICROALBUM/CREATININE RATIO,UR 5.4 ug/mg (<30.0); MICROALBUMIN,URINE 0.5 mg/dL (0-300.0)
[2022-03-08 13:25] LABS: ESTIMATED AVERAGE GLUCOSE 303 mg/dL (70-100); HEMOGLOBIN A1c% 12.2 % (4.27-6.07)
== END 2022-03-08 10:12 | disposition home or self-care (01) ==
LOC: LAB.N 10:11
PROVIDERS: ATTEND Physician Assistant Medical
DX: E11.9 Type 2 diabetes mellitus without complications (principal)
CPT/HCPCS: 36415; 80048; 80061; 82043; 82570; 83036; 83721

== ENCOUNTER 2022-06-01 07:56 | Outpatient (CLI) | payer MEDICAID ==
[2022-06-01 13:30] LABS: ALBUMIN/GLOBULIN RATIO 1.3 (1.0-2.2); ALKALINE PHOSPHATASE 83 IU/L (42-121); ALT ALANINE AMINOTRANSFERASE 26 IU/L (10-60); AST ASPARTATE AMINOTRANSFERASE 17 IU/L (10-42); BILIRUBIN,TOTAL 0.8 mg/dL (0.2-1.0); BUN - BLOOD UREA NITROGEN 10 mg/dL (6-20); CARBON DIOXIDE - CO2 29 mmol/L (21-32); CHLORIDE 104 mmol/L (101-111); CHOL/HDL RATIO 3.8 (<4.4); CHOLESTEROL 171 mg/dL; CREATININE 0.8 mg/dL (0.4-1.0); GFR - MDRD 74 (>89); GLUCOSE 199 mg/dL (70-100); HDL CHOLESTEROL 45 mg/dL; LDL CHOLESTEROL,CALCULATED 102 mg/dL; LDL/HDL RATIO 2.3 (<4.4); POTASSIUM 3.9 mmol/L (3.5-5.0); SODIUM 140 mmol/L (135-145); TOTAL PROTEIN 7.1 g/dL (6.7-8.2); TRIGLYCERIDES 121 mg/dL; VLDL CHOLESTEROL 24 mg/dL
[2022-06-01 13:46] LABS: ESTIMATED AVERAGE GLUCOSE 203 mg/dL (70-100); HEMOGLOBIN A1c% 8.7 % (4.27-6.07)
== END 2022-06-01 07:57 | disposition home or self-care (01) ==
LOC: LAB.N 07:56
PROVIDERS: ATTEND Physician Assistant Medical
DX: E11.9 Type 2 diabetes mellitus without complications (principal)
CPT/HCPCS: 36415; 80053; 80061; 83036; 83721

== ENCOUNTER 2022-09-03 11:55 | Outpatient (CLI) | payer MEDICAID ==
[2022-09-03 18:07] LABS: CALCIUM 8.9 mg/dL (8.5-10.3); CREATININE 0.9 mg/dL (0.4-1.0); POTASSIUM 4.3 mmol/L (3.5-5.0)
[2022-09-05 08:02] LABS: ESTIMATED AVERAGE GLUCOSE 243 mg/dL (70-100); HEMOGLOBIN A1c% 10.1 % (4.27-6.07)
== END 2022-09-03 11:56 | disposition home or self-care (01) ==
LOC: LAB.N 11:55
PROVIDERS: ATTEND Physician Assistant Medical
DX: E11.9 Type 2 diabetes mellitus without complications (principal)
CPT/HCPCS: 36415; 80048; 83036

== ENCOUNTER 2022-12-15 07:23 | Outpatient (CLI) | payer MEDICAID ==
[2022-12-15 12:24] LABS: ESTIMATED AVERAGE GLUCOSE 220 mg/dL (70-100); HEMOGLOBIN A1c% 9.3 % (4.27-6.07)
[2022-12-15 14:01] LABS: BUN - BLOOD UREA NITROGEN 8 mg/dL (6-20); CALCIUM 8.8 mg/dL (8.5-10.3); CARBON DIOXIDE - CO2 27 mmol/L (21-32); CHLORIDE 105 mmol/L (101-111); CHOL/HDL RATIO 4.7 (<4.4); CHOLESTEROL 210 mg/dL; CREATININE 0.7 mg/dL (0.4-1.0); GFR - MDRD 87 (>89); GLUCOSE 210 mg/dL (70-100); HDL CHOLESTEROL 45 mg/dL; LDL CHOLESTEROL,CALCULATED 136 mg/dL; SODIUM 137 mmol/L (135-145); TRIGLYCERIDES 143 mg/dL; VLDL CHOLESTEROL 29 mg/dL
== END 2022-12-15 07:24 | disposition home or self-care (01) ==
LOC: LAB.N 07:23
PROVIDERS: ATTEND Physician Assistant Medical
DX: E11.9 Type 2 diabetes mellitus without complications (principal)
CPT/HCPCS: 36415; 80048; 80061; 83036; 83721

== ENCOUNTER 2023-09-08 09:38 | Outpatient (CLI) | payer MEDICAID ==
[2023-09-08 12:42] LABS: ESTIMATED AVERAGE GLUCOSE 220 mg/dL (70-100); HEMOGLOBIN A1c% 9.3 % (4.27-6.07)
[2023-09-08 12:43] LABS: CALCIUM 9.2 mg/dL (8.5-10.3); CREATININE 0.7 mg/dL (0.6-1.3); POTASSIUM 4.3 mmol/L (3.5-4.5)
== END 2023-09-08 09:39 | disposition home or self-care (01) ==
LOC: LAB.N 09:38
PROVIDERS: ATTEND Physician Assistant Medical
DX: E11.9 Type 2 diabetes mellitus without complications (principal)
CPT/HCPCS: 36415; 80048; 83036

== ENCOUNTER 2023-09-16 07:50 | Outpatient (CLI) | payer MEDICAID ==
[2023-09-16 12:00] LABS: BASOPHILS % (AUTO) 0.6 %; EOSINOPHILS # (AUTO) 0.2 10^3/uL (0.0-0.7); EOSINOPHILS % (AUTO) 2.2 %; HCT - HEMATOCRIT 45.5 % (37.0-47.0); HGB - HEMOGLOBIN 15.6 g/dL (12.0-16.0); LYMPHOCYTES # (AUTO) 2.7 10^3/uL (1.5-3.5); LYMPHOCYTES % (AUTO) 37.4 %; MEAN CORPUSCULAR HEMOGLOBIN 29.7 pg (27.0-31.0); MEAN CORPUSCULAR HGB CONC 34.3 g/dL (32.0-36.0); MEAN CORPUSCULAR VOLUME 86.7 fL (81.0-99.0); MEAN PLATELET VOLUME 10.1 fL (7.9-10.8); MONOCYTES # (AUTO) 0.8 10^3/uL (0.0-1.0); MONOCYTES % (AUTO) 10.4 %; NEUTROPHILS # (AUTO) 3.5 10^3/uL (1.5-6.6); PLT - PLATELET COUNT 288 10^3/uL (130-450); RED BLOOD COUNT 5.25 10^6/uL (4.20-5.40); RED CELL DISTRIBUTION WIDTH 12.9 % (12.0-15.0); WHITE BLOOD COUNT 7.2 x10^3/uL (4.8-10.8)
[2023-09-16 12:41] LABS: ALBUMIN/GLOBULIN RATIO 1.4 (1.0-2.2); BILIRUBIN,TOTAL 0.4 mg/dL (0.2-1.0); CALCIUM 9.2 mg/dL (8.5-10.3); CREATININE 0.8 mg/dL (0.6-1.3); POTASSIUM 4.3 mmol/L (3.5-4.5); TOTAL PROTEIN 6.9 g/dL (6.4-8.9)
== END 2023-09-16 07:51 | disposition home or self-care (01) ==
LOC: LAB.N 07:50
PROVIDERS: ATTEND Nurse Practitioner
DX: L40.0 Psoriasis vulgaris (principal); L21.8 Other seborrheic dermatitis; Z79.899 Other long term (current) drug therapy
CPT/HCPCS: 36415; 80053; 85025

== ENCOUNTER 2023-10-28 10:43 | Outpatient (CLI) | payer MEDICAID ==
[2023-10-28 18:14] LABS: BASOPHILS # (AUTO) 0.1 10^3/uL (0.0-0.1); BASOPHILS % (AUTO) 0.6 %; EOSINOPHILS # (AUTO) 0.2 10^3/uL (0.0-0.7); EOSINOPHILS % (AUTO) 1.8 %; HCT - HEMATOCRIT 49.3 % (37.0-47.0); HGB - HEMOGLOBIN 16.2 g/dL (12.0-16.0); LYMPHOCYTES # (AUTO) 2.3 10^3/uL (1.5-3.5); LYMPHOCYTES % (AUTO) 27.9 %; MEAN CORPUSCULAR HEMOGLOBIN 29.2 pg (27.0-31.0); MEAN CORPUSCULAR HGB CONC 32.9 g/dL (32.0-36.0); MEAN PLATELET VOLUME 10.2 fL (7.9-10.8); MONOCYTES # (AUTO) 0.7 10^3/uL (0.0-1.0); MONOCYTES % (AUTO) 8.6 %; NEUTROPHILS % (AUTO) 60.6 %; PLT - PLATELET COUNT 320 10^3/uL (130-450); RED BLOOD COUNT 5.54 10^6/uL (4.20-5.40); RED CELL DISTRIBUTION WIDTH 13.2 % (12.0-15.0); WHITE BLOOD COUNT 8.3 x10^3/uL (4.8-10.8)
[2023-10-28 18:34] LABS: ALBUMIN 4.1 g/dL (3.2-5.5); ALBUMIN/GLOBULIN RATIO 1.3 (1.0-2.2); BILIRUBIN,TOTAL 0.5 mg/dL (0.2-1.0); CALCIUM 9.6 mg/dL (8.5-10.3); CREATININE 0.7 mg/dL (0.6-1.3); POTASSIUM 4.4 mmol/L (3.5-4.5); TOTAL PROTEIN 7.3 g/dL (6.4-8.9)
== END 2023-10-28 10:44 | disposition home or self-care (01) ==
LOC: LAB.N 10:43
PROVIDERS: ATTEND Nurse Practitioner
DX: Z79.899 Other long term (current) drug therapy (principal)
CPT/HCPCS: 36415; 80053; 85025

== ENCOUNTER 2023-12-06 11:21 | Outpatient (CLI) | payer MEDICAID ==
[2023-12-06 18:18] LABS: ALBUMIN 4.1 g/dL (3.2-5.5); ALBUMIN/GLOBULIN RATIO 1.4 (1.0-2.2); ALKALINE PHOSPHATASE 110 IU/L (42-121); ALT ALANINE AMINOTRANSFERASE 20 IU/L (10-60); AST ASPARTATE AMINOTRANSFERASE 14 IU/L (10-42); BILIRUBIN,TOTAL 0.5 mg/dL (0.2-1.0); BUN - BLOOD UREA NITROGEN 12 mg/dL (6-20); CALCIUM 9.9 mg/dL (8.5-10.3); CARBON DIOXIDE - CO2 31 mmol/L (21-32); CHLORIDE 100 mmol/L (101-111); CHOL/HDL RATIO 3.8 (<4.4); CHOLESTEROL 177 mg/dL; CREATININE 0.7 mg/dL (0.6-1.3); GFR - MDRD 86 (>89); GLUCOSE 276 mg/dL (74-104); HDL CHOLESTEROL 46 mg/dL; LDL CHOLESTEROL,CALCULATED 96 mg/dL; LDL/HDL RATIO 2.1 (<4.4); POTASSIUM 4.5 mmol/L (3.5-4.5); SODIUM 135 mmol/L (135-145); TRIGLYCERIDES 176 mg/dL (48-352); VLDL CHOLESTEROL 35 mg/dL
[2023-12-06 22:40] LABS: ESTIMATED AVERAGE GLUCOSE 258 mg/dL (70-100); HEMOGLOBIN A1c% 10.6 % (4.27-6.07)
== END 2023-12-06 11:22 | disposition home or self-care (01) ==
LOC: LAB.N 11:21
PROVIDERS: ATTEND Physician Assistant Medical
DX: E11.9 Type 2 diabetes mellitus without complications (principal)
CPT/HCPCS: 36415; 80053; 80061; 83036; 83721

== ENCOUNTER 2024-03-16 09:51 | Outpatient (CLI) | payer MEDICAID ==
[2024-03-16 12:00] LABS: ALBUMIN 4.1 g/dL (3.2-5.5); ALBUMIN/GLOBULIN RATIO 1.5 (1.0-2.2); BILIRUBIN,TOTAL 0.4 mg/dL (0.2-1.0); CALCIUM 9.4 mg/dL (8.5-10.3); CREATININE 0.7 mg/dL (0.6-1.3); POTASSIUM 4.5 mmol/L (3.5-4.5); TOTAL PROTEIN 6.8 g/dL (6.4-8.9)
[2024-03-16 12:15] LABS: ESTIMATED AVERAGE GLUCOSE 246 mg/dL (70-100); HEMOGLOBIN A1c% 10.2 % (4.27-6.07)
== END 2024-03-16 09:52 | disposition home or self-care (01) ==
LOC: LAB.N 09:51
PROVIDERS: ATTEND Physician Assistant Medical
DX: E11.9 Type 2 diabetes mellitus without complications (principal)
CPT/HCPCS: 36415; 80053; 83036